=== PATIENT | female | born 1935 | race Caucasian/White ===

== ENCOUNTER → 2017-01-23 | Outpatient (CLI) | payer OTHER ==
--- NOTE | 2017-01-23 14:45 | ECHOCARDIOGRAM REPORT ---
*NOTICE TO RECEIVING [employer] This information is strictly Confidential and protected under [place] law. [place] law prohibits you from making any further disclosure of this information unless further disclosure is expressly permitted by the written consent of the person to whom it pertains or is authorized by law. A general authorization for the release of medical or other information is not sufficient for this purpose. Hospital accepts no responsibility if the information is made available to any other person, INCLUDING THE PATIENT. Interpretation Summary * Name: SHANNEN VALLES Study Date: 01/23/2017 01:05 PM BP: 146/79 mmHg * Patient Location: [facility] HR: 72 * : 1935 (M/d/yyyy) Gender: Female Height: 68 in * Age: 81 yrs Ethnicity: [place] Weight: 260 lb * Ordering Physician: ANDRIA REYES * Performed By: Cristal Serrato * * Reason For Study: AFIB * BSA: 2.3 m2 * -- Conclusions -- * Left ventricular systolic function is normal. * No regional wall motion abnormalities noted. * Ejection Fraction = 55-60%. * There is borderline concentric left ventricular hypertrophy. * There is mild mitral regurgitation. * There is mild tricuspid regurgitation. * The left atrium is severely dilated. * Atrial fibrillation throughout the study. Procedure Details * A complete two-dimensional transthoracic echocardiogram was performed (2D, M-mode, Doppler and color flow Doppler). * The study was technically difficult. * There were technical limitations due to patient'sbody habitus Left Ventricle * The left ventricle is normal in size. * There is borderline concentric left ventricular hypertrophy. * Ejection Fraction = 55-60%. * Left ventricular systolic function is normal. * No regional wall motion abnormalities noted. Right Ventricle * The right ventricle is grossly normal size. * The right ventricular systolic function is normal as assessed by tricuspid annular plane systolic excursion (TAPSE) (normal >1.5 cm). Atria * The left atrium is severely dilated. * The right atrium is moderately dilated. * No ASD detected; PFO is not assessed. Mitral Valve * The mitral valve is grossly normal. * There is no mitral valve stenosis. * There is mild mitral regurgitation. Tricuspid Valve * The tricuspid valve is not well visualized, but is grossly normal. * There is no tricuspid stenosis. * There is mild tricuspid regurgitation. Aortic Valve * The aortic valve is trileaflet. * The aortic valve opens well. * Aortic valve sclerosis mild, without significant aortic valvular stenosis. * There is no significant aortic regurgitation. Pulmonic Valve * The pulmonic valve is not well visualized. Great Vessels * The aortic root is normal size. * The pulmonary is not well visualized. Pericardium/Pleural * There is no pericardial effusion. Great Vessels * Normal inferior vena cava size and collapsability with sniff indicates a normal right atrial pressure of 3 mmHg MMode 2D Measurements and Calculations IVSd 1.2 cm IVSs 2.3 cm LVIDd 4.9 cm LVIDs 2.8 cm LVPWd 1.6 cm LVPWs 1.6 cm IVS/LVPW 0.77 FS 42.4 % EDV(Teich) 114.5 ml ESV(Teich) 30.6 ml EF(Teich) 73.2 % EDV(cubed) 119.9 ml ESV(cubed) 22.9 ml EF(cubed) 80.9 % % IVS thick 92.8 % % LVPW thick 4.6 % LV mass(C)d 281.4 grams LV mass(C)dI 123.1 grams/m\S\2 LV mass(C)s 244.1 grams LV mass(C)sI 106.8 grams/m\S\2 CO(Teich) 6.0 l/min CI(Teich) 2.6 l/min/m\S\2 SV(Teich) 83.8 ml SI(Teich) 36.7 ml/m\S\2 CO(cubed) 7.0 l/min CI(cubed) 3.1 l/min/m\S\2 SV(cubed) 97.0 ml SI(cubed) 42.4 ml/m\S\2 ACS 1.1 cm LA dimension 3.9 cm LVOT diam 1.8 cm LVOT area 2.5 cm\S\2 LVAd ap4 25.0 cm\S\2 LVLd ap4 6.7 cm EDV(MOD-sp4) 77.9 ml LVAs ap4 14.0 cm\S\2 LVLs ap4 5.5 cm ESV(MOD-sp4) 31.5 ml EF(MOD-sp4) 59.6 % LVAd ap2 25.4 cm\S\2 LVLd ap2 7.1 cm EDV(MOD-sp2) 77.5 ml LVAs ap2 14.0 cm\S\2 LVLs ap2 5.3 cm ESV(MOD-sp2) 32.3 ml EF(MOD-sp2) 58.3 % CO(MOD-sp4) 3.3 l/min CI(MOD-sp4) 1.5 l/min/m\S\2 SV(MOD-sp4) 46.4 ml SI(MOD-sp4) 20.3 ml/m\S\2 CO(MOD-sp2) 3.3 l/min CI(MOD-sp2) 1.4 l/min/m\S\2 SV(MOD-sp2) 45.2 ml SI(MOD-sp2) 19.8 ml/m\S\2 Doppler Measurements and Calculations MV E max antony 121.7 cm/sec MV dec time 0.20 sec Ao V2 max 147.7 cm/sec Ao max PG 8.7 mmHg Ao max PG (full) -0.50 mmHg NORMA(V,A) 2.6 cm\S\2 NORMA(V,D) 2.6 cm\S\2 LV V1 max PG 9.2 mmHg LV V1 mean PG 3.3 mmHg LV V1 max 151.8 cm/sec LV V1 mean 80.2 cm/sec LV V1 VTI 29.9 cm MR max antony 292.1 cm/sec MR max PG 34.1 mmHg SV(LVOT) 75.2 ml SI(LVOT) 32.9 ml/m\S\2 PA V2 max 62.6 cm/sec PA max PG 1.6 mmHg TR max antony 230.1 cm/sec
== END | disposition home or self-care (01) ==
LOC: C.CPL 12:21
DX: I48.91 Unspecified atrial fibrillation (principal); I10 Essential (primary) hypertension; I51.7 Cardiomegaly; I08.1 Rheumatic disorders of both mitral and tricuspid valves

== ENCOUNTER → 2017-07-10 | Outpatient (CLI) | payer OTHER ==
[2017-07-10 15:52] LABS: URINE APPEARANCE TURBID (CLEAR); URINE BILIRUBIN NEG (NEG); URINE COLOR DK YELLOW; URINE NITRITE NEG (NEG); URINE SPECIFIC GRAVITY 1.017 (1.000-1.030); UROBILINOGEN NEG (NEG)
[2017-07-10 16:00] LABS: MANUAL MICROSCOPIC REQUIRED? NO; REVIEW REQ? YES
== END | disposition home or self-care (01) ==
LOC: C.LAB1850 13:52
DX: N39.0 Urinary tract infection, site not specified (principal)

== ENCOUNTER → 2017-08-16 | Outpatient (CLI) | payer OTHER ==
[2017-08-16 10:01] LABS: URINE APPEARANCE CLOUDY (CLEAR); URINE COLOR ORANGE; URINE EPITHELIAL CELL AUTO >30 /lpf (0-5); URINE NITRITE NEG (NEG); URINE PH 5.5 (4.5-7.5); URINE SPECIFIC GRAVITY 1.022 (1.000-1.030); UROBILINOGEN NEG (NEG); ZZUR CULT IF INDIC CLEAN CATCH YES
[2017-08-16 10:10] LABS: MANUAL MICROSCOPIC REQUIRED? NO; REVIEW REQ? NO; URINE BILIRUBIN NEG (NEG)
--- NOTE | 2017-08-20 14:25 | CODING QUERY NO DIAGNOSIS ---
: 1935 TREATMENT RENDERED WITHOUT A DIAGNOSIS To promote full compliance with coding requirements relating to patient care, physician participation is requested in all cases of manager income tax uncertainty. Please assist us with providing a diagnosis/symptom for the test(s) below: A diagnosis/symptom was not documented on your Order. A valid diagnosis/symptom is required to bill all insurances. Please remember that we are unable to code a diagnosis of rule out, probable, possible, questionable, or suspected. Tests that require a diagnosis: DOS: 08/16/2017 * URINE CULTURE CLEAN CATCH DIAGNOSIS: * UA CLEAN CATCH CULTURE DIAGNOSIS: Provider Signature: Date: Thank you Eliza Ramos [facility] Information Management Once completed, please kindly fax back to [phone] For questions please call [phone]
== END | disposition home or self-care (01) ==
LOC: C.LAB1850 09:11
DX: N39.0 Urinary tract infection, site not specified (principal)

== ENCOUNTER → 2017-08-17 | Outpatient (CLI) | payer OTHER ==
--- NOTE | 2017-08-17 14:56 | DIAGNOSTIC IMAGING REPORT ---
RENAL ULTRASOUND HISTORY: HEMATURIA UNSPECIFIED COMPARISON: None. FINDINGS: Right kidney: 12.1 cm. No hydronephrosis. Normal corticomedullary differentiation and mild cortical thinning. Left kidney: 11.8 cm. No hydronephrosis. Normal corticomedullary differentiation and mild cortical thinning. A 2.3 x 1.9 cm upper pole cyst. Bladder: No bladder wall thickening. The bilateral ureteral jets were identified. IMPRESSION: 1. No hydronephrosis. 2. Mild bilateral cortical renal thinning which is likely age-related. 3. A 2.3 cm left renal cyst. Electronically signed by: Dylan Padron M.D. 08/17/2017 2:55 PM Dictated Date/Time: 08/17/2017 2:53 PM
== END | disposition home or self-care (01) ==
LOC: C.ULTR 13:52
PROVIDERS: ATTEND Physician Assistant
DX: R31.9 Hematuria, unspecified (principal); N28.1 Cyst of kidney, acquired

== ENCOUNTER → 2017-09-06 | Outpatient (CLI) | payer OTHER ==
--- NOTE | 2017-09-06 10:45 | DIAGNOSTIC IMAGING REPORT ---
ABD/PELVIS NO IV OR ORAL CONT HISTORY: 82 years-old Female HEMATURIA acute hematuria. Initial exam COMPARISON: Renal ultrasound 08/17/2017 TECHNIQUE: Multiple axial CT images of the abdomen and pelvis were obtained without contrast. A dose lowering technique was used consistent with the principals of MIKE. FINDINGS: Study is moderately limited secondary to motion artifact. There is mild dependent bibasilar atelectasis. Trace left pleural effusion. No pneumoperitoneum identified. Imaged inferior cardiac chambers are moderately enlarged. Coronary arterial calcifications are noted. No large pericardial effusion. Evaluation of the solid abdominal organs is limited without the use of IV contrast. Within the limitations of the study the liver, spleen, and right adrenal gland are unremarkable. There is a low attenuating 1.3 x 1.1 cm left adrenal gland lesion compatible with adenoma. Large gallstones are seen within the gallbladder lumen without definite CT evidence of acute cholecystitis, intrahepatic or extra hepatic biliary ductal dilation. 2.3 cm cyst is seen involving the superior pole left kidney, unchanged from comparison. There is no renal calculi or hydronephrosis identified. There is suggested small subcentimeter renal sinus cysts involving the inferior pole right kidney. Urinary bladder is partially collapsed with wall thickening. Focus of nondependent air is seen within the urine bladder lumen. Prior hysterectomy. No adnexal mass identified. There are phleboliths of the pelvis. Moderate to extensive atherosclerotic plaquing of the abdominal aorta. No bulky retroperitoneal adenopathy. Suspected small sliding-type hiatal hernia. No bowel obstruction or focal bowel wall thickening. Stool ball in the rectal vault. Colonic diverticulosis without diverticulitis. The appendix appears normal. Small fat filled periumbilical hernia, diastases 1.0 cm. The bones are moderately demineralized. Multilevel severe discogenic degenerative changes and facet arthropathy of the lower lumbar spine. IMPRESSION: 1. Moderately limited study secondary to patient motion. 2. Wall thickening of a partially collapsed urinary bladder is noted with air in the nondependent lumen. Correlate with urinalysis to exclude cystitis. No renal calculi or hydronephrosis. 3. Cholelithiasis without definite CT evidence of acute cholecystitis. 4. Colonic diverticulosis without evidence of acute diverticulitis. 5. Additional incidental findings as above. The above report was generated using voice recognition software. It may contain grammatical, syntax or spelling errors. Electronically signed by: Paulo Harmon M.D. 09/06/2017 10:44 AM Dictated Date/Time: 09/06/2017 10:37 AM
== END | disposition home or self-care (01) ==
LOC: C.CTS 09:40
PROVIDERS: ATTEND Physician Assistant
DX: R31.0 Gross hematuria (principal); R93.41 Abnormal radiologic findings on diagnostic imaging of renal pelvis, ureter, or bladder; K80.20 Calculus of gallbladder without cholecystitis without obstruction; K57.30 Diverticulosis of large intestine without perforation or abscess without bleeding

== ENCOUNTER → 2017-09-06 | Outpatient (CLI) | payer OTHER | END | disposition home or self-care (01) | LOC: C.PATHSPEC 17:02 | PROVIDERS: ATTEND Urology | DX: R31.0 Gross hematuria (principal) ==

== ENCOUNTER → 2017-09-14 | Outpatient (CLI) | payer OTHER | END | disposition home or self-care (01) | LOC: C.PATHSPEC 14:47 | PROVIDERS: ATTEND Urology | DX: R31.0 Gross hematuria (principal); N39.0 Urinary tract infection, site not specified ==

== ENCOUNTER → 2017-10-30 | Outpatient (CLI) | payer OTHER | END | disposition home or self-care (01) | LOC: C.PATHSPEC 17:50 | PROVIDERS: ATTEND Urology | DX: R31.0 Gross hematuria (principal) ==

== ENCOUNTER → 2017-10-30 | Outpatient (CLI) | payer OTHER ==
--- NOTE | 2017-10-30 10:48 | DIAGNOSTIC IMAGING REPORT ---
CT ABD/PELVIS IV AND ORAL CONT CLINICAL HISTORY: R31.0 Gross [id number] Renal cyst, acquired COMPARISON STUDY: 09/06/2017 TECHNIQUE: Following the IV administration of 93 mL of Optiray-320, CT scan of the abdomen and pelvis was performed from the lung bases to the proximal femurs. Images are reviewed in the axial, sagittal, and coronal planes. IV contrast was administered without complication. A dose lowering technique was utilized adhering to the principles of ALARA. CT DOSE: 1636.11 mGy.cm FINDINGS: Lower chest: The heart is enlarged. There is mild dependent atelectatic change. There is respiratory motion artifact. Liver: The contrast-enhanced liver is normal in size, contour, and attenuation. There is no intrahepatic biliary ductal dilatation. The hepatic veins and portal veins are patent. Gallbladder: Cholelithiasis with gallbladder wall thickening. Spleen: Normal in size and attenuation. Pancreas: Unremarkable. Adrenal glands: There is a stable 13 mm left adrenal adenoma Kidneys: There is a 2.5 cm left renal cyst. Right renal parapelvic cysts are suspected. There is no significant hydronephrosis. No solid renal masses are visualized. Bowel: There are no transition zones indicate bowel obstruction. There are scattered colonic diverticula present. There are no acute peridiverticular inflammatory changes. There is no evidence of acute appendicitis. Peritoneum: There is no intraperitoneal free air or abdominal ascites. There is a small fat-containing umbilical hernia. Vasculature: The abdominal aorta is normal in course and caliber. Adenopathy: None. Pelvic viscera: The uterus appears surgically absent Skeletal structures: No destructive osseous lesions are seen. IMPRESSION: 1. Stable 13 mm left adrenal adenoma 2. 2.5 cm left renal cyst. No solid renal masses identified 3. No evidence of bowel obstruction. No evidence of free air 4. Cholelithiasis. Gallbladder wall thickening. Electronically signed by: Jose Olivas M.D. 10/30/2017 10:46 AM Dictated Date/Time: 10/30/2017 10:42 AM
== END | disposition home or self-care (01) ==
LOC: C.CTS 08:19
PROVIDERS: ATTEND Urology
DX: N28.1 Cyst of kidney, acquired (principal); R31.0 Gross hematuria

== ENCOUNTER → 2017-10-30 | Outpatient (CLI) | payer OTHER | END | disposition home or self-care (01) | LOC: C.LABSPEC 17:16 | PROVIDERS: ATTEND Urology | DX: R31.0 Gross hematuria (principal); N39.0 Urinary tract infection, site not specified ==

== ENCOUNTER → 2018-03-20 | Day surgery (SDC) | payer OTHER ==
[2017-12-14 11:50] VITALS: BMI 38.0
[2018-03-13 11:40] VITALS: Ht 172.7 cm; Wt 118.2 kg
[~2018-03-20] VITALS: Ht 172.7 cm; Wt 118.2 kg
[~2018-03-20] MED LIST: 500ML BSS 0.3ML EPI 1:1000PF IRRIG ONE; ACETAMINOPHEN 325 MG TAB PO PRN; ALPR-411 PO; AMVISC PLUS 0.8ML SYRINGE INT OCU ONE; ASPI-560 PO; ATOR10TA82 PO; ATROPINE SULFATE 0.1 MG/ML 5ML SYR IV PRN; AcetaZOLAMIDE 250 MG TAB PO SCH; BETAXOLOL HCL 0.25% OP SUSP PER DROP CHARGE OPR SCH; BRIMONIDINE TART 0.2% OP SOLN PER DROP CHARGE ONE; BSS FLUSH ONE; CYCLOPENTOLATE HCL 1% OP SOLN PER DROP CHARGE OPR SCH; ENDOCOAT 0.85ML SYRINGE INT OCU ONE; EpHEDrine SULFATE INJ 50 MG/ML AMP IV PRN; EpINEphrine INJ 1MG/ML AMP 1 MG/ML AMP ONE; FURO20TA PO; LACTATED RINGER'S 1000ML 500 ML IV SCH; LEVO100T7 PO; LEVO75TA5 PO; LIDOCAINE 4% OP SOLN DROP CHARGE ONE; LIDOCAINE 4% OP SOLN DROP CHARGE OPR SCH; LIDOCAINE HCL 1% MPF 2 ML VIAL ONE; LORC1TAB PO; MIDAZOLAM HCL 1 MG/ML 2ML VIAL ONE; MISSING PHYSICIAN SIGNATURE ON ORDER SCH; MIX: 4ML BSS 1ML EPI 1:1000 PF INSTIL ONE; MOXIFLOXACIN OPH SOLN PER DROP CHARGE ONE; MOXIFLOXACIN OPH SOLN PER DROP CHARGE OPR SCH; MULT-614 PO; NITR1CAP33 PO; OMEG10007 PO; PHENYLEPHRINE HCL 2.5% OP SOLN PER DROP CHARGE OPR SCH; POVIDONE-IODINE OP SOLN 30 ML BTL ONE; PROPARACAINE 0.5% OP SOLN PER DROP CHARGE OPR SCH; TOBRAMYCIN/DEXAMETHASONE OPH OINT PER APPLN CHARGE ONE; TROPICAMIDE 1% OP SOLN PER DROP CHARGE OPR SCH; WARF4TAB PO
--- NOTE | 2018-03-20 06:29 | History & Physical Bridge - SC ---
H&P Re-Evaluation Bridge Note: I have examined the patient, reviewed the History & Physical and in the interval since the performance of the History & Physical I have noted the following changes of clinical significance: No changes noted
[2018-03-20] MEDS: PHENYLEPHRINE HCL 2.5% OP SOLN PER DROP CHARGE OPR SCH ×2 (06:53→06:57)
[2018-03-20] MEDS: TROPICAMIDE 1% OP SOLN PER DROP CHARGE OPR SCH ×2 (06:54→06:58)
[2018-03-20] MEDS: CYCLOPENTOLATE HCL 1% OP SOLN PER DROP CHARGE OPR SCH ×2 (06:55→06:59)
[2018-03-20] MEDS: MOXIFLOXACIN OPH SOLN PER DROP CHARGE OPR SCH ×2 (06:55→07:05)
--- NOTE | 2018-03-20 07:36 | [facility] Operative Report ---
Operative Report Date of Service March 20, 2018. Operative Report 1. PREOPERATIVE DIAGNOSIS: Senile nuclear cataract, right eye. 2. POSTOPERATIVE DIAGNOSIS: Senile nuclear cataract, right eye. 3. PROCEDURE: Phacoemulsification of right cataract with posterior chamber lens implant, type [employer], model MX60E, power +21.5 diopters. ANESTHESIA: Local standby. SURGEON: Dr. Mendes. COMPLICATIONS: None. OPERATING TIME: 10 minutes. 4. OPERATION AND FINDINGS: DESCRIPTION OF PROCEDURE: The right pupil was dilated. The anesthetic was administered using a topical technique. The right eye was prepped and draped. A speculum was placed. A clear corneal incision was formed. The chamber was filled with Amvisc Plus and Endocoat. Epinephrine solution was used. A paracentesis was placed. A capsulorrhexis was performed. The nucleus was hydrodissected. A dense lens was removed with phacoemulsification. Time was 5.74 seconds. The aspiration unit was used to remove the cortex. The capsule was filled with Amvisc Plus. The lens implant was folded and placed into the capsule. The incision was hydrated. The Amvisc was aspirated. The wound was secure. The chamber was deep. The pupil was round. Brimonidine, TobraDex ointment and Vigamox solution were placed. The speculum was removed. The patient was returned to the Recovery Room in stable condition. I attest to the content of the Intraoperative Record and any orders documented therein. Any exceptions are noted below. The scribe's documentation has been prepared in my presence, under my direction and personally reviewed by me in its entirety. I confirm that the note above accurately reflects all work, treatment, procedures, and medical decision making performed by me. I personally scribed for Luis Enrique Mendes M.D. ([email or web address]) on 03/20/18 at 07:36. Electronically submitted by Carol Weeks ([email or web address]).
--- NOTE | 2018-03-20 07:38 | Discharge Instructions-SurgCtr ---
Discharge Instructions Date of Service March 20, 2018. Visit Reason for Visit: Cataract Right Eye Discharge Discharge Diagnosis / Problem: lens implant right eye Discharge Goals Goal(s): Improve function Activity Recommendations Activity Limitations: resume your previous activity Lifting Limitations: no more than 10 pounds Exercise/Sports Limitations: gradually increase as tolerated May Resume Sexual Activity: when tolerated Shower/Bathe: tomorrow Driving or Machine Use: resume 1 day after discharge Anesthesia . Post Anesthesia Instructions: If you have had General Anesthesia or IV Sedation: * Do not drive today. * Resume driving when surgeon permits. * Do not make important decisions or sign legal documents today. * Call surgeon for: 1. Temperature elevations greater than 101 degrees F. 2. Uncontrollable pain. 3. Excessive bleeding. 4. Persistent nausea and vomiting. 5. Medication intolerance (nausea, vomiting or rash). * For nausea and vomiting use only clear liquids such as: tea, soda, bouillon until nausea subsides, then gradually increase diet as tolerated. * If you have any concerns or questions, call your surgeon's office. If physician is unavailable and it is an emergency, call 911 or go to the nearest emergency room. . Instructions / Follow-Up Instructions / Follow-Up ACTIVITY RECOMMENDATIONS: * Light activities. * Mild irritation and blurred vision are common for the first few days. * You may walk outside, read, watch television. * Redness around the white part of the eye is common. MEDICATIONS: Resume previous medications unless instructed otherwise by your surgeon. * Take white Diamox (Acetazolamide) tablet at 1 pm today. Start all eye drops at 1 pm today: * Eye drops (today and tomorrow): Prednisone - one drop in operative eye every 3 hours while awake Ofloxacin - one drop in operative eye every 3 hours while awake SPECIAL CARE INSTRUCTIONS: * Tape plastic shield over eye to sleep at night. Call your doctor at with any concerns or problems. FOLLOW UP VISIT: Follow-up with Dr Mendes at [facility] as scheduled. Diet Recommendations Home Diet: no limitations Procedures Procedures Performed: Right Cataract Phacoemulsification With Intraocular Lens Implant Pending Studies Studies pending at discharge: no Medical Emergencies . Who to Call and When: Medical Emergencies: If at any time you feel your situation is an emergency, please call 911 immediately. . Non-Emergent Contact Non-Emergency issues call your: [employer] Pl[employer]aker Call Non-Emergent contact if: your pain is not controlled [phone] . . "Provider Documentation" section prepared by Luis Enrique Mendes. .
--- NOTE | 2018-03-20 07:44 | Anesthesia Progress Nt - [facility] ---
Anesthesia Post Op Note Date & Time March 20, 2018 at 07:44 Vital Signs Pain Intensity: 0 Vital Signs Past 12 Hours Date Time Temp Pulse Resp B/P (MAP) Pulse Ox O2 Delivery O2 Flow Rate FiO2 03/20/18 06:35 36.7 70 20 119/77 (91) 94 Room Air Notes Mental Status: alert / awake / arousable, participated in evaluation Pt Amnestic to Procedure: Yes Nausea / Vomiting: adequately controlled Pain: adequately controlled Airway Patency, RR, SpO2: stable & adequate BP & HR: stable & adequate Hydration State: stable & adequate Anesthetic Complications: no major complications apparent
[2018-03-20 08:03] VITALS: BP 156/83; PULSE 51; O2SAT 95
== END | disposition home or self-care (01) ==
LOC: X.SURG 06:27
PROVIDERS: ATTEND Specialist
DX: H25.11 Age-related nuclear cataract, right eye (principal); I48.91 Unspecified atrial fibrillation; J44.9 Chronic obstructive pulmonary disease, unspecified; F32.9 Major depressive disorder, single episode, unspecified; E66.01 Morbid (severe) obesity due to excess calories; Z68.39 Body mass index [BMI] 39.0-39.9, adult; Z79.01 Long term (current) use of anticoagulants

== ENCOUNTER 2022-06-21 21:54 | Observation (INO) ==
--- NOTE | 2022-06-21 22:43 | Emergency Department Note ---
History of Present Illness General Chief complaint: Chest Pain Stated complaint: chest pain Time Seen by Provider: 06/21/22 22:29 Source: patient and family (Son who is at the bedside) Mode of arrival: ambulatory Limitations: no limitations History of Present Illness Maximum Pain Intensity: 6 This patient is a 86-year-old female comes in after having chest pain. She said it started around 6:00 after she got other shower it was right-sided but it spread up into her neck she said she had no other symptoms with that she does have a history of chronic A. fib and had no syncope or rapid heart rates. she had no numbness or tingling she said it hurt to breathe but also hurt when she would breathe as well. She has had a cough for few days but but is been breathing normal her grandson came to see her and she slept from 7-9 but when she woke up she still had the pain. She did call ambulance and they gave her as pirin as well as nitroglycerin x1 she says she is never had nitro before but it made the pain go away. She is asymptomatic at present. Home Medications Medication Instructions Recorded Confirmed Type multivit with 1 tab PO QAM 12/29/20 06/22/22 History pamiquje-rkuf-LN-lutein 8 mg iron-400 mcg-300 mcg tablet (Centrum Silver Women) omega-3 fatty acids 1,000 mg 1,000 mg PO QAM 12/29/20 06/22/22 History capsule (Fish Oil Concentrate) polyethylene glycol 3350 17 17 g PO QAM 12/29/20 06/22/22 History gram/dose oral powder alprazolam 0.5 mg tablet 0.5 mg PO TID #90 tabs 03/10/22 06/22/22 Rx acetaminophen 500 mg tablet 500 mg PO Q6H PRN Pain 05/17/22 06/22/22 History atorvastatin 10 mg tablet 10 mg PO QAM 05/17/22 06/22/22 History cholecalciferol (vitamin D3) 50 50 mcg PO QAM 05/17/22 06/22/22 History mcg (2,000 unit) capsule (Vitamin D3) clobetasol 0.05 % topical cream 1 applic topical BID PRN Rash 05/17/22 06/22/22 History furosemide 20 mg tablet 20 mg PO QAM 05/17/22 06/22/22 History levothyroxine 150 mcg tablet 150 mcg PO QAM 05/17/22 06/22/22 History (Synthroid) rivaroxaban 20 mg tablet (Xarelto) 20 mg PO HS 05/17/22 06/22/22 History cephalexin 250 mg capsule 250 mg PO BID 7 days #14 caps 06/20/22 06/22/22 Rx Allergies Allergy/AdvReac Type Severity Reaction Status Date / Time No Known Allergies Allergy Verified 06/22/22 00:03 Past Med/Surg History Medical History Anxiety Atrial fibrillation F/U DR JM CARD Dyspnea on effort Hypothyroidism Renal cyst, acquired UTI (urinary tract infection), uncomplicated HX Surgical History H/O: hysterectomy Family History Father Myocardial infarction Mother Diabetes CHF (congestive heart failure) Aunt Stroke Sister Diabetes Denies family history of Ovarian cancer Prostate cancer Breast cancer Lung cancer Colorectal cancer Social History Smoking Status: Never smoker Tobacco Type: Cigarettes Age Started Using Tobacco: 15; Age Quit Using Tobacco: 54; packs per day: 2; Years Smoked: 40; Number of Years Since Quit: 25; Second Hand Exposure: Yes (PARENTS SMOKED); Hx Alcohol Use: Yes Alcohol type: wine and hard liquor Alcohol Intake Frequency: 2-3 x/Week Hx Substance Use: No Preferred Language: [place] Communication Ability: Effective Visual Impairment: Limited Hearing Ability: Hard of Hearing Lumber Tailer Required: No Beliefs That Will Affect Care: Gnosticist Gnosticist Beliefs: BAHAI marital status: / Current Living Situation: Alone and Other Current Living Situation Comment: [facility] current occupational status: retired How many Children do You have: 4 Feels Safe at Home: Yes Childhood Exposure to Second-Hand Smoke: No Diet Comment: calorie counts caffeine: Yes Dental Care, Regularly: No Physical Activity Frequency: Daily Physical Activity Frequency Comment: upper body care and chair excersie Seatbelt Use: always Sunscreen Use: No Assistive Devices: Denture - Upper, Denture - Lower, Glasses and Walker Review of Systems A total of 10 systems reviewed and were otherwise negative Physical Exam Vital Signs Vital Signs - 24 hr 06/21/22 22:23 06/21/22 22:23 06/21/22 22:38 Temperature 37 C Temperature Source Oral Pulse Rate 70 Pulse Rate from SpO2 Sensor Respiratory Rate 20 Respiratory Effort / Characteristics Non-Labored Non-Labored Respiratory Depth Normal Normal Blood Pressure 168/67 H Blood Pressure Mean 100 Pulse Oximetry 92 92 Oxygen Delivery Method Room Air Room Air Sepsis Recent Fever Within 48 Hours No Sepsis New/Unexplained Change in Mental Status No Sepsis Action Taken by Nursing No Action Required 06/21/22 22:21 06/21/22 22:09 06/21/22 22:30 Temperature Temperature Source Pulse Rate 83 79 Pulse Rate from SpO2 Sensor 86 75 Respiratory Rate 22 19 Respiratory Effort / Characteristics Respiratory Depth Blood Pressure Blood Pressure Mean Pulse Oximetry 93 93 Oxygen Delivery Method Room Air Sepsis Recent Fever Within 48 Hours Sepsis New/Unexplained Change in Mental Status Sepsis Action Taken by Nursing 06/21/22 23:00 06/21/22 23:30 06/22/22 00:00 Temperature Temperature Source Pulse Rate 80 78 86 Pulse Rate from SpO2 Sensor 84 Respiratory Rate 10 L 26 H 17 Respiratory Effort / Characteristics Respiratory Depth Blood Pressure Blood Pressure Mean Pulse Oximetry 93 Oxygen Delivery Method Sepsis Recent Fever Within 48 Hours Sepsis New/Unexplained Change in Mental Status Sepsis Action Taken by Nursing 06/22/22 00:30 06/22/22 01:00 06/22/22 01:27 Temperature Temperature Source Pulse Rate 114 H 90 Pulse Rate from SpO2 Sensor Respiratory Rate 15 22 Respiratory Effort / Characteristics Respiratory Depth Blood Pressure 157/89 H Blood Pressure Mean 111 Pulse Oximetry Oxygen Delivery Method Sepsis Recent Fever Within 48 Hours Sepsis New/Unexplained Change in Mental Status Sepsis Action Taken by Nursing 06/22/22 01:27 06/22/22 01:30 06/22/22 02:00 Temperature Temperature Source Pulse Rate 88 81 86 Pulse Rate from SpO2 Sensor Respiratory Rate 18 18 21 Respiratory Effort / Characteristics Respiratory Depth Blood Pressure Blood Pressure Mean Pulse Oximetry Oxygen Delivery Method Sepsis Recent Fever Within 48 Hours Sepsis New/Unexplained Change in Mental Status Sepsis Action Taken by Nursing General: Well developed well nourished older female who appears in no acute distress, breathing comfortably on room air. Normal speech HEENT: Normal cephalic atraumatic. Pupils are equal round and reactive to ligh t. Extraocular movements are intact. Oropharynx is pink with moist mucous membranes. No swelling of the mouth lips or tongue. Sclera anicteric. Neck: Supple with a midline trachea. No meningeal signs or stiffness, no JVD or bruits. No Stridor. Chest: Clear to auscultation bilaterally. No wheezes or rhonchi. No increased work of breathing. Heart: Regular rate and rhythm without murmurs or gallops. Abdomen: Soft nontender, nondistended without rebound guarding or rigidity. Extremities: No cyanosis clubbing or edema. No calf tenderness or assymetry Spine/Back. Non tender to palpation. No CVA tenderness Skin: Good turgor without rashes. Neurologic exam: Cranial nerves two through 12 are intact. Motor and sensation are intact and symmetrical throughout. Procedures Free Text Procedures ED observation Start Time: 223706/21/22 Reason: Patient with PMHx of a. fib underwent ED Observation for chest pain . Fam Hx: CAD SocHx: See Below Summary: This patient had an episode of chest pain. Placed on a property assessment monitor and she had 2 EKGs done while she was here which showed A. fib there is no ST segment elevation there is possibly some subtle depressions. Her initial troponin was mildly elevated however the second 1 appears to be trending downward. Because of her age and her cardiac risk factors I do think she ultimately needs to be admitted/observed. Disposition: Admission 06/22/22. 219 Total Time:3 hours and 37 min Medical Decision Making Differential Diagnosis Acute coronary syndrome, arrhythmia, A. fib, trauma, pneumothorax, PE, CHF, COVID Medical Records Attestation: I reviewed the patient's medical records. Home Medications Current Medication List: was personally reviewed by me Laboratory Data Attestation: I reviewed the patient's lab results. Result diagrams: 06/21/22 23:21 06/21/22 23:21 Lab Results 06/21/22 06/21/22 06/21/22 Range/Units 23:21 23:21 23:21 WBC 9.18 (4.8-10.8) K/ul RBC 4.05 (3.93-5.22) M/uL Hgb 13.0 (12.0-16.0) g/dl Hct 41.1 (34.1-44.9) % MCV 101.5 H (80.0-100.0) fL MCH 32.1 (25.0-34.0) pg MCHC 31.6 L (32.0-36.0) g/dL RDW Std Deviation 48.2 H (36.4-46.3) fL RDW Coeff of Chris 12.8 (11.5-14.5) % Plt Count 170 (130-400) K/uL MPV 9.5 (9.4-12.3) fL Immature Gran % (Auto) 0.3 % Neut % (Auto) 72.3 % Lymph % (Auto) 14.1 % [place] % (Auto) 12.0 % Eos % (Auto) 1.0 % Baso % (Auto) 0.3 % Neut # (Auto) 6.64 H (1.4-6.5) K/uL Lymph # (Auto) 1.29 (1.2-3.4) K/uL [place] # (Auto) 1.10 H (0.24-0.82) K/uL Eos # (Auto) 0.09 (0-0.50) K/uL Baso # (Auto) 0.03 (0-0.2) K/uL Immature Gran # (Auto) 0.03 H (0.00-0.02) K/uL PT 12.8 H (9.0-12.0) Seconds INR 1.2 H (0.9-1.1) APTT 31.9 H (21.0-31.0) Seconds PTT Ratio 1.2 Sodium 137 (136-145) mmol/L Potassium 3.9 (3.5-5.1) mmol/L Chloride 101 (98-107) mmol/L Carbon Dioxide 28 (21-32) mmol/L Anion Gap 8 (3-11) BUN 12 (6-23) mg/dl Creatinine 0.82 (0.6-1.2) mg/dl Est Cr Clr Drug Dosing 65.0 ml/min Est GFR ( Amer) 74.6 ml/min Est GFR (Non-Af Amer) 64.3 ml/min BUN/Creatinine Ratio 14.6 (10-20) Glucose 152 H (70-99(Fasting)) mg/dl Calcium 9.2 (8.5-10.1) mg/dl Total Bilirubin 0.6 (0.2-1.0) mg/dl AST 29 (13-39) U/L ALT 18 (7-52) U/L Alkaline Phosphatase 53 (34-104) U/L Troponin I High Sens 29.1 H (0-14) pg/ml Total Protein 7.9 (6.0-8.3) gm/dl Albumin 4.0 (3.4-5.0) gm/dl Globulin 3.9 (2.5-4.0) gm/dl Albumin/Globulin Ratio 1.0 (0.9-2) Lipase 11 (11-82) U/L SARS-CoV-2, RNA, NAAT (NEGATIVE) 06/22/22 06/22/22 Range/Units 00:42 01:20 WBC (4.8-10.8) K/ul RBC (3.93-5.22) M/uL Hgb (12.0-16.0) g/dl Hct (34.1-44.9) % MCV (80.0-100.0) fL MCH (25.0-34.0) pg MCHC (32.0-36.0) g/dL RDW Std Deviation (36.4-46.3) fL RDW Coeff of Chris (11.5-14.5) % Plt Count (130-400) K/uL MPV (9.4-12.3) fL Immature Gran % (Auto) % Neut % (Auto) % Lymph % (Auto) % [place] % (Auto) % Eos % (Auto) % Baso % (Auto) % Neut # (Auto) (1.4-6.5) K/uL Lymph # (Auto) (1.2-3.4) K/uL [place] # (Auto) (0.24-0.82) K/uL Eos # (Auto) (0-0.50) K/uL Baso # (Auto) (0-0.2) K/uL Immature Gran # (Auto) (0.00-0.02) K/uL PT (9.0-12.0) Seconds INR (0.9-1.1) APTT (21.0-31.0) Seconds PTT Ratio Sodium (136-145) mmol/L Potassium (3.5-5.1) mmol/L Chloride (98-107) mmol/L Carbon Dioxide (21-32) mmol/L Anion Gap (3-11) BUN (6-23) mg/dl Creatinine (0.6-1.2) mg/dl Est Cr Clr Drug Dosing ml/min Est GFR ( Amer) ml/min Est GFR (Non-Af Amer) ml/min BUN/Creatinine Ratio (10-20) Glucose (70-99(Fasting)) mg/dl Calcium (8.5-10.1) mg/dl Total Bilirubin (0.2-1.0) mg/dl AST (13-39) U/L ALT (7-52) U/L Alkaline Phosphatase (34-104) U/L Troponin I High Sens 26.9 H (0-14) pg/ml Total Protein (6.0-8.3) gm/dl Albumin (3.4-5.0) gm/dl Globulin (2.5-4.0) gm/dl Albumin/Globulin Ratio (0.9-2) Lipase (11-82) U/L SARS-CoV-2, RNA, NAAT NEGATIVE (NEGATIVE) Imaging Data Attestation: I personally reviewed and interpreted this imaging study as follows: My Impression: Chest x-rayCardiomegaly but no acute infiltrate, failure, pneumothorax seen ECG Data Attestation: I personally reviewed and interpreted this ECG as follows: Indication: + chest pain Rate (beats per minute): 72 Rhythm: + atrial fibrillation ECG Intervals/blocks: + Normal QRS, + Normal QT and + Normal NE ECG [place]: + Normal ECG ST segments: + Nonspecific ST abnormalities ECG Findings: no PACs or no PVCs Comparison ECG Date: no prior available Additional Comments: EKG #2: Rate controlled A. fib at 88 no ischemic changes no change. EKG #1 MDM Narrative This patient comes in as described above. She had episode of chest pain she came in by ambulance she is feeling better now she was given nitroglycerin and aspirin on route and that seemed to help. She is on Xarelto. She did fall yesterday but it denied any chest pain or trauma at that time. I did order chest x-ray EKG multiple blood testing as well as IV access and she was placed o n a property assessment monitor. She was reassessed frequently. Chest x-ray does not show congestive heart failure pneumonia or pneumothorax. She has no white count or fever to suggest infection. She has no significant anemia. Her EKG shows no ischemic changes x2 and no change compared to either one. her initial troponin is mildly elevated 29 the second 1 is decreased at 26. This may be from her fall however given her symptoms I do think that she should be admitted/observed for further cardiac work-up and evaluation. I have consulted Dr. Greco and the [facility] hospitalist team to see her for these measures. Continuous cardiac monitoring: Orders placed in EMR for continuous cardiac mon itoring. Breen interpretation the patient was noted be in rate controlled A. fib with a rate of 70 Impression & Plan Chest pain, exterminator termite current use of anticoagulant, Fall, A-fib Discharge Plan Visit Data Chief Complaint: Chest Pain Stated Complaint: chest pain ED Provider: Juan Sarabia Discharge Problem: Chest pain, exterminator termite current use of anticoagulant, Fall, A-fib Forms Stand Alone Forms: My [facility] Prescriptions Prescriptions: No Action polyethylene glycol 3350 17 gram/dose powder 17 g PO QAM Centrum Silver Women 8 mg iron-400 mcg-300 mcg tablet 1 tab PO QAM omega-3 fatty acids [Fish Oil Concentrate] 1,000 mg capsule 1,000 mg PO QAM alprazolam 0.5 mg tablet 0.5 mg PO TID Qty: 90 5RF cholecalciferol (vitamin D3) [Vitamin D3] 50 mcg (2,000 unit) Capsule 50 mcg PO QAM atorvastatin 10 mg tablet 10 mg PO QAM clobetasol 0.05 % cream 1 applic topical BID PRN (Reason: Rash) levothyroxine [Synthroid] 150 mcg tablet 150 mcg PO QAM furosemide 20 mg tablet 20 mg PO QAM Xarelto 20 mg tablet 20 mg PO HS acetaminophen 500 mg Tablet 500 mg PO Q6H PRN (Reason: Pain) cephalexin 250 mg capsule 250 mg PO BID 7 Days Qty: 14 0RF Referrals Referrals: Jm Sung MD [Primary Care Provider] - : Chest pain Qualifiers: Chest pain type: precordial pain Qualified Code(s): R07.2 - Precordial pain Fall Qualifiers: Encounter type: subsequent encounter Qualified Code(s): W19.XXXD - Unspecified fall, subsequent encounter A-fib Qualifiers: Atrial fibrillation type: longstanding persistent Qualified Code(s): I48.11 - Longstanding persistent atrial fibrillation
[2022-06-21 23:31] LABS: Basophils # (auto) 0.03 K/uL (0-0.2); Basophils % (auto) 0.3 %; Eosinophils # (auto) 0.09 K/uL (0-0.50); Hematocrit (blood only) 41.1 % (34.1-44.9); Immature Granulocytes # (auto) 0.03 K/uL (0.00-0.02); Immature Granulocytes % (auto) 0.3 %; Lymphocytes # (auto) 1.29 K/uL (1.2-3.4); Lymphocytes % (auto) 14.1 %; Mean Corpuscular Hemoglobin 32.1 pg (25.0-34.0); Mean Corpuscular Hgb Conc 31.6 g/dL (32.0-36.0); Mean Corpuscular Volume 101.5 fL (80.0-100.0); Mean Platelet Volume 9.5 fL (9.4-12.3); Neutrophils # (auto) 6.64 K/uL (1.4-6.5); Neutrophils % (auto) 72.3 %; Platelet Count 170 K/uL (130-400); RDW Coefficient of Variation 12.8 % (11.5-14.5); RDW Standard Deviation 48.2 fL (36.4-46.3); Red Blood Count 4.05 M/uL (3.93-5.22); White Blood Count 9.18 K/ul (4.8-10.8)
[2022-06-21 23:51] LABS: BUN Creatinine Ratio 14.6 (10-20); Bilirubin,Total 0.6 mg/dl (0.2-1.0); Calcium 9.2 mg/dl (8.5-10.1); Est GFR (African American) 74.6 ml/min; Est GFR (Non-African American) 64.3 ml/min; Globulin 3.9 gm/dl (2.5-4.0); Potassium 3.9 mmol/L (3.5-5.1); Total Protein 7.9 gm/dl (6.0-8.3)
[2022-06-21 23:57] LABS: Troponin I High Sensitivity 29.1 pg/ml (0-14)
[2022-06-22 00:02] LABS: INR 1.2 (0.9-1.1); Partial Thromboplastin Ratio 1.2; Partial Thromboplastin Time 31.9 Seconds (21.0-31.0); Prothrombin Time 12.8 Seconds (9.0-12.0)
--- NOTE | 2022-06-22 02:10 | History & Physical Report ---
Date of Service June 22, 2022 Assessment & Plan (1) Bronchitis: Plan: Ceftriaxone 2 g IV daily Guaifenesin extended release 12 mg p.o. twice daily Tessalon Perles 100 mg p.o. 3 times daily as needed (2) NSTEMI (non-ST elevated myocardial infarction): Plan: Likely type II secondary to respiratory process The patient will be admitted to telemetry for serial cardiac enzymes, serial EKG's, cardiac rhythm monitoring and a 2-D echocardiogram with Dopplers. (3) A-fib: Plan: A. fib/long-term use of anticoagulation- Patient missed dose Xarelto this evening Start heparin drip low-dose per protocol (4) Current use of skilled nursing anticoagulation: Plan: See above (5) Anxiety: Plan: Continue alprazolam (6) Hyperlipidemia: Plan: Continue atorvastatin History of Present Illness Chief Complaint: The patient presents to the emergency department with complaint of some pain under her ribs, a cough with pleuritic chest pain that occurred after exposure to her sick young grandchildren. Primary Care Provider: Jm Sung MD The patient is an 86-year-old female with a past medical history including closed head injury, long-term anticoagulation with Xarelto, atrial fibrillation, recurrent UTI, gait disturbance, anxiety, hyperlipidemia, hyperglycemia, vitamin D deficiency and blood in stool. She presents with symptoms as noted above. Her cough in the emergency department sounds moist. Abnormal laboratories: Troponin 29.1, glucose 152, potassium 3.9. EKG shows atrial fibrillation with controlled rate, with minimal ST depressions in lateral chest leads Allergies Allergy/AdvReac Type Severity Reaction Status Date / Time No Known Allergies Allergy Verified 06/22/22 00:03 Home Medications Medication Instructions Recorded Confirmed Type multivit with 1 tab PO QAM 12/29/20 06/22/22 History thqdizln-pjwk-QY-lutein 8 mg iron-400 mcg-300 mcg tablet (Centrum Silver Women) omega-3 fatty acids 1,000 mg 1,000 mg PO QAM 12/29/20 06/22/22 History capsule (Fish Oil Concentrate) polyethylene glycol 3350 17 17 g PO QAM 12/29/20 06/22/22 History gram/dose oral powder alprazolam 0.5 mg tablet 0.5 mg PO TID #90 tabs 03/10/22 06/22/22 Rx acetaminophen 500 mg tablet 500 mg PO Q6H PRN Pain 05/17/22 06/22/22 History atorvastatin 10 mg tablet 10 mg PO QAM 05/17/22 06/22/22 History cholecalciferol (vitamin D3) 50 50 mcg PO QAM 05/17/22 06/22/22 History mcg (2,000 unit) capsule (Vitamin D3) clobetasol 0.05 % topical cream 1 applic topical BID PRN Rash 05/17/22 06/22/22 History furosemide 20 mg tablet 20 mg PO QAM 05/17/22 06/22/22 History levothyroxine 150 mcg tablet 150 mcg PO QAM 05/17/22 06/22/22 History (Synthroid) rivaroxaban 20 mg tablet (Xarelto) 20 mg PO HS 05/17/22 06/22/22 History cephalexin 250 mg capsule 250 mg PO BID 7 days #14 caps 06/20/22 06/22/22 Rx Past Med/Surg History Medical History (Updated 06/22/22 @ 03:40 by Jose Luis Samaniego MD) Anxiety Atrial fibrillation F/U DR JM CARD Dyspnea on effort Hypothyroidism Renal cyst, acquired UTI (urinary tract infection), uncomplicated HX Surgical History H/O: hysterectomy Family History Father Myocardial infarction Mother Diabetes CHF (congestive heart failure) Aunt Stroke Sister Diabetes Denies family history of Ovarian cancer Prostate cancer Breast cancer Lung cancer Colorectal cancer Social History Smoking Status: Never smoker Tobacco Type: Cigarettes Age Started Using Tobacco: 15; Age Quit Using Tobacco: 54; packs per day: 2; Years Smoked: 40; Number of Years Since Quit: 25; Second Hand Exposure: Yes (PARENTS SMOKED); Hx Alcohol Use: Yes Alcohol type: wine and hard liquor Alcohol Intake F requency: 2-3 x/Week Hx Substance Use: No Preferred Language: Uzbek Communication Ability: Effective Visual Impairment: Limited Hearing Ability: Hard of Hearing Proposal Writer Required: No Beliefs That Will Affect Care: Quaker Quaker Beliefs: ORTHODOX marital status: / Current Living Situation: Alone and Other Current Living Situation Comment: [facility] current occupational status: retired How many Children do You have: 4 Feels Safe at Home: Yes Childhood Exposure to Second-Hand Smoke: No Diet Comment: calorie counts caffeine: Yes Dental Care, Regularly: No Physical Activity Frequency: Daily Physical Activity Frequency Comment: upper body care and chair excersie Seatbelt Use: always Sunscreen Use: No Assistive Devices: Denture - Upper, Denture - Lower, Glasses and Walker Review of Systems Review of Systems: The patient denies sore throat, fevers, chills, sweats, weight change, fatigue, nausea, vomiting, diarrhea , constipation, abdominal pain, pelvic pain, blood in urine or stool, dysuria, urinary frequency or urgency, lightheadedness, dizziness, headache, memory loss, loss of consciousness, rash, abnormal bruising or bleeding, focal weakness, numbness or tingling in arms or legs, generalized arthralgias or myalgias, back or neck pain, or night sweats. The review of systems is otherwise negative other than for that already noted above, and at least 10 systems have been reviewed. Physical Exam Physical Exam: The patient is awake, alert and oriented 3, well developed and well nourished, normocephalic and atraumatic, lying in bed and in no acute distress. HEENT--PERRL, EOMI, mucous membranes and oropharynx dry. Neck--supple. No JVD. No bruits. Thyroid normal, trachea midline, no adenopathy. Heart--irregularly irregular. No murmurs, rubs or gallops. Lungs--few coarse breath sounds bilaterally. No respiratory distress, no accessory muscle use. Abdomen--normal bowel sounds and soft. Nontender. Nondistended. Obese Extremities--no cyanosis or clubbing. 1+ bilateral pretibial pitting edema Dermatologic--normal skin turgor, normal color, no abnormal lymph nodes, no rash. Neurologic--cranial nerves II through XII grossly intact. Rheumatologic--normal range of motion. Psychiatric--normal affect. Results & Data Results & Data ([facility]) Vital Signs (Past 12 Hours) Vital Signs Temp Pulse Resp BP Pulse Ox O2 Del Method 06/22/22 02:00 86 21 06/22/22 01:30 81 18 06/22/22 01:27 88 18 06/22/22 01:27 157/89 H 06/22/22 01:00 90 22 06/22/22 00:30 114 H 15 06/22/22 00:00 86 17 06/21/22 23:30 78 26 H 06/21/22 23:00 80 10 L 93 06/21/22 22:30 79 19 93 06/21/22 22:09 83 22 93 06/21/22 22:21 Room Air 06/21/22 22:38 92 Room Air 06/21/22 22:23 37 C 70 20 168/67 H 92 Room Air Laboratory Results Laboratory Results WBC 9.18 K/ul (4.8-10.8) 06/21/22 23:21 RBC 4.05 M/uL (3.93-5.22) 06/21/22 23:21 Hgb 13.0 g/dl (12.0-16.0) 06/21/22 23:21 Hct 41.1 % (34.1-44.9) 06/21/22 23:21 MCV 101.5 fL (80.0-100.0) H 06/21/22 23:21 MCH 32.1 pg (25.0-34.0) 06/21/22 23:21 MCHC 31.6 g/dL (32.0-36.0) L 06/21/22 23:21 RDW Std Deviation 48.2 fL (36.4-46.3) H 06/21/22 23:21 RDW Coeff of Chris 12.8 % (11.5-14.5) 06/21/22 23:21 Plt Count 170 K/uL (130-400) 06/21/22 23:21 MPV 9.5 fL (9.4-12.3) 06/21/22 23:21 Immature Gran % (Auto) 0.3 % 06/21/22 23:21 Neut % (Auto) 72.3 % 06/21/22 23:21 Lymph % (Auto) 14.1 % 06/21/22 23:21 [place] % (Auto) 12.0 % 06/21/22 23:21 Eos % (Auto) 1.0 % 06/21/22 23:21 Baso % (Auto) 0.3 % 06/21/22 23:21 Neut # (Auto) 6.64 K/uL (1.4-6.5) H 06/21/22 23:21 Lymph # (Auto) 1.29 K/uL (1.2-3.4) 06/21/22 23:21 [place] # (Auto) 1.10 K/uL (0.24-0.82) H 06/21/22 23:21 Eos # (Auto) 0.09 K/uL (0-0.50) 06/21/22 23:21 Baso # (Auto) 0.03 K/uL (0-0.2) 06/21/22 23:21 Immature Gran # (Auto) 0.03 K/uL (0.00-0.02) H 06/21/22 23:21 PT 12.8 Seconds (9.0-12.0) H 06/21/22 23:21 INR 1.2 (0.9-1.1) H 06/21/22 23:21 APTT 31.9 Seconds (21.0-31.0) H 06/21/22 23:21 PTT Ratio 1.2 06/21/22 23:21 Sodium 137 mmol/L (136-145) 06/21/22 23:21 Potassium 3.9 mmol/L (3.5-5.1) 06/21/22 23:21 Chloride 101 mmol/L (98-107) 06/21/22 23:21 Carbon Dioxide 28 mmol/L (21-32) 06/21/22 23:21 Anion Gap 8 (3-11) 06/21/22 23:21 BUN 12 mg/dl (6-23) 06/21/22 23:21 Creatinine 0.82 mg/dl (0.6-1.2) 06/21/22 23:21 Est Cr Clr Drug Dosing 65.0 ml/min 06/21/22 23:21 Est GFR ( Amer) 74.6 ml/min 06/21/22 23:21 Est GFR (Non-Af Amer) 64.3 ml/min 06/21/22 23:21 BUN/Creatinine Ratio 14.6 (10-20) 06/21/22 23:21 Glucose 152 mg/dl (70-99(Fasting)) H 06/21/22 23:21 Calcium 9.2 mg/dl (8.5-10.1) 06/21/22 23:21 Total Bilirubin 0.6 mg/dl (0.2-1.0) 06/21/22 23:21 AST 29 U/L (13-39) 06/21/22 23:21 ALT 18 U/L (7-52) 06/21/22 23:21 Alkaline Phosphatase 53 U/L (34-104) 06/21/22 23:21 Troponin I High Sens 26.9 pg/ml (0-14) H 06/22/22 01:20 Total Protein 7.9 gm/dl (6.0-8.3) 06/21/22 23:21 Albumin 4.0 gm/dl (3.4-5.0) 06/21/22 23:21 Globulin 3.9 gm/dl (2.5-4.0) 06/21/22 23:21 Albumin/Globulin Ratio 1.0 (0.9-2) 06/21/22 23:21 Lipase 11 U/L (11-82) 06/21/22 23:21 SARS-CoV-2, RNA, NAAT NEGATIVE (NEGATIVE) 06/22/22 00:42 Code Status & VTE Plan Code Status Full code VTE Prophylaxis Plan VTE Prophylaxis will be ordered: Yes PG Care Time/CCT Total # of Minutes Spent Total Time Spent with Patient: Total time spent is greater than 50% in coordination of care (as documented) at patient's floor/unit and/or counseling patient: Coding Level of Care Code 79420 Initial Inpt Care Lvl 3 Diagnoses Bronchitis J40 NSTEMI (non-ST elevated myocardial infarction) I21.4 A-fib I48.11 Atrial fibrillation type: longstanding persistent Current use of extermination supervisor anticoagulation Z79.01 Anxiety F41.9 Hyperlipidemia E78.5 (1) A-fib Atrial fibrillation type: longstanding persistent Qualified Code(s): I48.11 - Longstanding persistent atrial fibrillation
[2022-06-22] MEDS ORDERED: BENZONATATE 100 MG CAPSULE PO PRN (02:11)
[2022-06-22] MEDS ORDERED: ONDANSETRON INJ 2 MG/ML 2 ML VIAL IV PRN (02:31)
[2022-06-22] MEDS ORDERED: HEPARIN SODIUM/DEXTROSE 25,000 UNITS/500 ML BAG IV SCH (02:31)
[2022-06-22] MEDS ORDERED: ACETAMINOPHEN 500 MG TAB PO PRN (02:31)
[2022-06-22] MEDS: Heparin IV Adult Wt-Based Low-Dose *NO* Bolus Protocol IV SCH (04:01)
[2022-06-22] MEDS ORDERED: LEVOTHYROXINE SODIUM 150 MCG TABLET PO SCH (06:30)
--- NOTE | 2022-06-22 07:47 | XRay Report ---
XR chest 1V portable HISTORY: 86 years-old Female Chest Pain acute atypical chest pain COMPARISON: None TECHNIQUE: Portable AP view of the chest FINDINGS: The cardiac silhouette is enlarged. Atherosclerosis of the aorta. No pneumothorax or large pleural ef fusion. Pulmonary vascular congestion. Healed chronic left-sided rib fractures with degenerative meyer ges of the shoulders and spine. IMPRESSION: Cardiomegaly with pulmonary vascular congestion. ACT 112: Negative or not required by law. The above report was generated using voice recognition software. It may contain grammatical, syntax o r spelling errors. Electronically signed by: Kevin Harmon M.D. 06/22/2022 7:45 AM
[2022-06-22] MEDS: guaiFENesin 600 MG TABCR PO SCH ×2 (08:19→08:30)
[2022-06-22] MEDS: ALPRAZolam 0.5 MG TABLET PO SCH ×2 (08:22→08:30)
[2022-06-22] MEDS ORDERED: POLYETHYLENE (MIRALAX) 17 GM PACK PO SCH (09:00)
[2022-06-22] MEDS ORDERED: CHOLECALCIFEROL 1,000 UNITS 25 MCG TAB PO SCH (09:00)
[2022-06-22] MEDS ORDERED: CEROVITE ADV FORMULA TAB PO SCH (09:00)
[2022-06-22] MEDS ORDERED: FUROSEMIDE 20 MG TAB PO SCH (09:00)
[2022-06-22] MEDS ORDERED: cefTRIAXone SODIUM 2,000 MG in DEXTROSE 5% 50 ML IV SCH (09:00)
[2022-06-22] MEDS ORDERED: OMEGA-3 (PURIFIED FISH OIL) 1 GM CAP PO SCH (09:00)
[2022-06-22] MEDS ORDERED: ATORVASTATIN 10 MG TAB PO SCH (09:00)
[2022-06-22 10:09] LABS: Albumin Level 3.4 gm/dl (3.4-5.0); BUN Creatinine Ratio 14.3 (10-20); Calcium 8.5 mg/dl (8.5-10.1); Creatinine Clr Calc Pharmacy 69.2 ml/min; Est GFR (African American) 80.5 ml/min; Est GFR (Non-African American) 69.4 ml/min; Phosphorus 2.6 mg/dl (2.5-4.9); Potassium 3.7 mmol/L (3.5-5.1)
[2022-06-22 10:15] LABS: Troponin I High Sensitivity 32.2 pg/ml (0-14)
[2022-06-22 10:20] LABS: Partial Thromboplastin Ratio 1.8
[2022-06-22 10:31] LABS: Partial Thromboplastin Time 49.4 Seconds (21.0-31.0)
[2022-06-22] MEDS ORDERED: ALPRAZolam 0.5 MG TABLET PO PRN (11:03)
--- NOTE | 2022-06-22 12:43 | XCELERA ---
[id number] \\[id number]
[2022-06-22] MEDS ORDERED: POTASSIUM CHLORIDE 20 MEQ/15 ML UDC PO STA (15:20)
[2022-06-22] MEDS ORDERED: FUROSEMIDE INJ 20 MG/2 ML VIAL IV ONE (15:20)
--- NOTE | 2022-06-22 15:36 | Discharge Summary ---
Date of Service June 22, 2022 Admission HPI Per Admitting Provider The patient is an 86-year-old female with a past medical history including closed head injury, long-term anticoagulation with Xarelto, atrial fibrillation, recurrent UTI, gait disturbance, anxiety, hyperlipidemia, hyperglycemia, vitamin D deficiency and blood in stool. She presents with symptoms as noted above. Her cough in the emergency department sounds moist. Abnormal laboratories: Troponin 29.1, glucose 152, potassium 3.9. EKG shows atrial fibrillation with controlled rate, with minimal ST depressions in lateral chest leads Principal Diagnosis Mild acute diastolic CHF Discharge Exam Constitutional and general: No acute distress, looks biologic age Head and face: mild puffiness Nasal injury noted Eyes: No scleral icterus, extraocular movements normal Neck: Supple, no JVD Musculoskeletal: No acute joint swelling, no bony abnormalities Skin/dermatologic/integument: No rash, no purpura Hematologic and lymphatic: pallor none, no petechia Gastrointestinal/abdomen: Nondistended, soft, nonacute Neurologic: Cranial nerves intact, nonfocal Psychiatry: Awake, alert, pleasant, communicative Cardiovascular: Heart rhythm irregular Respiratory: Chest movements equal, no use of accessory muscles, no adventitious sounds Extremities: edema +, no cyanosis Discharge Data Allergies Allergy/AdvReac Type Severity Reaction Status Date / Time No Known Allergies Allergy Verified 06/22/22 00:03 Consultations 06/22/22 00:14 ED Decision to Admit Stat 06/22/22 02:31 Consult Cardiology Routine 06/22/22 09:55 Consult General Surgery Routine Hospital Course (1) Acute diastolic (congestive) heart failure: Picture most constituent; radiologically and echo correlates (dilated IVC on echo); however mild, 1 dose IV Lasix and increase home dose to 20/40; might need to increase to 40 daily; KCl on alternate days; she does not need prescriptions for Lasix and will contact PCP (2) NSTEMI (non-ST elevated myocardial infarction): Likely type II secondary to respiratory process Seen by cardiology, non-ACS, agree (3) A-fib: Resume Xarelto at discharge (4) Current use of marine oil terminal superintendent anticoagulation: See above (5) Anxiety: Continue alprazolam (6) Hyperlipidemia: Continue atorvastatin (7) Nasal fracture: Plan She feels well, wants to go home; discussed Lasix 20 mg alternating with 40 mgmight need further adjustment; she does not need prescriptions Total Time Total Time Spent Total Time Spent (In Minutes): 32 Discharge Plan Discharge Items Patient Disposition: Home - Self-Care Reason For Visit: NSTEMI, BRONCHITIS Discharge Diagnosis: Mild acute diastolic heart failure Activity: Resume your previous activity Non-emergency contact: Primary Care Provider Call non-emergency contact if: your symptoms worsen Follow-up/Referrals: Shauna Sung MD [Primary Care Provider] - (Post discharge follow-upin 1 week) Abdi Ramirez MD [Physician] - (Diastolic CHF, seen in house, 2 to 4- week follow-up) Diet: Heart Healthy Addtl Attending Provider Instructions: From tomorrow take Lasix 20 mg alternating with 40 mg daily (20 mg tomorrow, next day 40 mg, and then so on) Take your Xarelto adjust dose every day with supper Pending Studies at Discharge: No Stand-Alone Forms: My [place], Smoking Cessation Medications and DC Order Prescriptions: New potassium chloride 20 mEq tablet extended release 20 meq PO .alternate day Qty: 30 0RF Rx Instructions: Starting 06-24-2022 Continued polyethylene glycol 3350 17 gram/dose powder 17 g PO QAM Centrum Silver Women 8 mg iron-400 mcg-300 mcg tablet 1 tab PO QAM omega-3 fatty acids [Fish Oil Concentrate] 1,000 mg capsule 1,000 mg PO QAM alprazolam 0.5 mg tablet 0.5 mg PO TID Qty: 90 5RF cholecalciferol (vitamin D3) [Vitamin D3] 50 mcg (2,000 unit) Capsule 50 mcg PO QAM atorvastatin 10 mg tablet 10 mg PO QAM clobetasol 0.05 % cream 1 applic topical BID PRN (Reason: Rash) levothyroxine [Synthroid] 150 mcg tablet 150 mcg PO QAM Xarelto 20 mg tablet 20 mg PO HS acetaminophen 500 mg Tablet 500 mg PO Q6H PRN (Reason: Pain) Changed furosemide 20 mg tablet See Rx Instructions .ROUTE .COMPLEX Qty: 60 0RF Rx Instructions: From tomorrow take 20 mg and 40 mg alternate day beginning with 20 mg tomorrow Discontinued cephalexin 250 mg capsule 250 mg PO BID 7 Days Qty: 14 0RF Discharge Orders: Discharge Order (Routine); Ordered 06/22/22 Ordered By: Mounika Magana Admission Data Admit Date/Time: 06/22/22 03:20 Attending Provider: Mounika Magana Admit Provider: Jose Luis Samaniego Primary Care Provider: Shauna Sung V. Other Providers: Jose Luis Samaniego ; Abdi Ramirez ; Elizabeth Gregory Coding Level of Care Code D/C DAY MANAGEMENT >30 MINS Diagnoses Acute diastolic (congestive) heart failure I50.31 NSTEMI (non-ST elevated myocardial infarction) I21.4 A-fib I48.11 Atrial fibrillation type: longstanding persistent Current use of halfway anticoagulation Z79.01 Anxiety F41.9 Hyperlipidemia E78.5 Nasal fracture S02.2XXA
[2022-06-22] MEDS ORDERED: RIVAROXABAN 20 MG TAB PO SCH ×2 (16:30→21:00)
--- NOTE | 2022-06-22 17:09 | Cardiology Consultation ---
Date of Consultation June 22, 2022 Assessment & Plan (1) NSTEMI (non-ST elevated myocardial infarction): (2) A-fib: Plan 1. Elevated troponin: Patient did have some mildly elevated cardiac biomarkers. However, the elevation is quite mild and there was no rise or fall characterist ic of an acute coronary syndrome. Her symptoms of chest discomfort is certainly concerning, but after 3 hours of symptoms without a significant increase in cardiac biomarkers I do not think this represented an acute coronary syndrome. She has an alternative diagnosis with a respiratory infection. She did not report symptoms of chest discomfort or limiting dyspnea at other times leading up to her admission. I do not think this necessitates an ischemic evaluation given her relatively sedentary lifestyle and absence of cardiac symptoms. Also noted to have preserved LV systolic function without regional wall motion abnormality. 2. Atrial fibrillation: This was discovered incidentally. Not overtly symptomatic she seems to have adequate rate control without medication. She was started on appropriate systemic anticoagulation with Xarelto. While her weight is over the limit for use of Xarelto, this particular medication seemed to have more efficacy in obese individuals. I think it is reasonable to continue her at her current dose. History of Present Illness Reason for Consultation: Elevated troponin, chest pain Requesting Physician: Danette Attending Physician: Mounika Magana MD History of Present Illness The patient is an 86-year-old woman with a recent diagnosis of atrial fibrillation who presented to the hospital for symptoms of chest discomfort. It seems that the patient had been traveling recently and developed some upper respiratory symptoms. This is manifest primarily by a cough and congestion. Yesterday she developed some symptoms of chest pressure in the precordial area. This occurred in around 6:00 p.m. in the evening. There was radiation to the neck and jaw. She did not feel any worsening shortness of breath in the overall severity of the symptom was mild. However, the symptom persisted and she was concerned about heart trouble. Around 9:00 p.m. she presented for evaluation to the emergency room. She was administered some nitroglycerin in route to the hospital on this seemed to relieve her symptoms. She has not had any recurrence. She continues to have some chest pain with coughing. Some discomfort with expiration. Improved with deep inspiration. She has a fairly sedentary individual at baseline. She ambulates with assistive devices. She does not do recreational activity. She has not had limiting dyspnea or chest pain associated with activity. Allergies Allergy/AdvReac Type Severity Reaction Status Date / Time No Known Allergies Allergy Verified 06/22/22 00:03 Home Medications Medication Instructions Recorded Confirmed Type multivit with 1 tab PO QAM 12/29/20 06/23/22 History [id number]-mlni-KM-lutein 8 mg iron-400 mcg-300 mcg tablet (Centrum Silver Women) omega-3 fatty acids 1,000 mg 1,000 mg PO QAM 12/29/20 06/23/22 History capsule (Fish Oil Concentrate) polyethylene glycol 3350 17 17 g PO QAM 12/29/20 06/23/22 History gram/dose oral powder alprazolam 0.5 mg tablet 0.5 mg PO TID #90 tabs 03/10/22 06/23/22 Rx acetaminophen 500 mg tablet 500 mg PO Q6H PRN Pain 05/17/22 06/23/22 History atorvastatin 10 mg tablet 10 mg PO QAM 05/17/22 06/23/22 History cholecalciferol (vitamin D3) 50 50 mcg PO QAM 05/17/22 06/23/22 History mcg (2,000 unit) capsule (Vitamin D3) clobetasol 0.05 % topical cream 1 applic topical BID PRN Rash 05/17/22 06/23/22 History levothyroxine 150 mcg tablet 150 mcg PO QAM 05/17/22 06/23/22 History (Synthroid) rivaroxaban 20 mg tablet (Xarelto) 20 mg PO HS 05/17/22 06/23/22 History furosemide 20 mg tablet See Rx Instructions .Route 06/22/22 06/23/22 Rx .COMPLEX #60 tabs potassium chloride 20 mEq 20 meq PO .alternate day #30 tabs 06/22/22 06/23/22 Rx tablet,extended release cephalexin 250 mg capsule 250 mg PO BID 06/23/22 06/23/22 History Patient History Medical History (Updated 06/23/22 @ 00:07 by Sylvia Quesada) Anxiety Atrial fibrillation F/U DR JM CARD Chest pain Dyspnea on effort Fall Hypothyroidism Renal cyst, acquired UTI (urinary tract infection), uncomplicated HX Surgical History H/O: hysterectomy Family History Father Myocardial infarction Mother Diabetes CHF (congestive heart failure) Aunt Stroke Sister Diabetes Denies family history of Ovarian cancer Prostate cancer Breast cancer Lung cancer Colorectal cancer Social History Smoking Status: Never smoker Tobacco Type: Cigarettes Age Started Using Tobacco: 15; Age Quit Using Tobacco: 54; packs per day: 2; Years Smoked: 40; Number of Years Since Quit: 25; Second Hand Exposure: No; Hx Alcohol Use: Yes Alcohol type: wine Alcohol Intake Frequency: 2-3 x/Week Hx Substance Use: No Preferred Language: Citizen Of [place] Communication Ability: Effective Visual Impairment: Limited Hearing Ability: Hard of Hearing Grades 6 Through 8 Teacher Required: No Beliefs That Will Affect Care: None marital status: / Current Living Situation: Personal Care Facility Current Living Situation Comment: [facility] current occupational status: retired How many Children do You have: 4 Feels Safe at Home: Yes Childhood Exposure to Second-Hand Smoke: No Diet Comment: calorie counts caffeine: Yes Dental Care, Regularly: No Physical Activity Frequency: Daily Physical Activity Frequency Comment: upper body care and chair excersie Seatbelt Use: always Sunscreen Use: No Assistive Devices: Walker Review of Systems Review of Systems: Per HPI. No recent fevers or chills. Patient appears to have suffered a mechanical fall the day prior to admission resulting in injury to her nose Physical Exam Physical Exam: She is alert and oriented x3. Mood affect appear normal. She answered all questions appropriately. Obese HEENT: Sclerae are anicteric. Pupils are equal and reactive to light and accommodation. Extraocular movements were intact. Neuro: Cranial nerves intact Lungs: Lungs are clear to auscultation bilaterally. There are no rales wheezes or rhonchi. She has normal respiratory effort without use of accessory muscles. There is normal pulmonary excursion. Cardiac: The rhythm was irregular. S1 and S2 were normal. There are no murmurs on examination. The PMI was not markedly displaced on palpation. Abdomen: Obese Extremities: Patient has bilateral radial pulses that are equal in intensity. There is no evidence cyanosis or clubbing. Skin: There are no rashes noted on examination today. Results & Data ([facility]) Vital Signs (Past 12 Hours) Vital Signs Temp Pulse Pulse Resp BP Pulse Ox O2 Del Method 06/22/22 16:19 36.9 C 96 H 16 170/91 H 92 06/22/22 16:00 36.9 C 96 H 16 170/91 H 92 Room Air 06/22/22 14:17 83 06/22/22 11:23 36.9 C 73 18 126/60 93 06/22/22 08:00 Room Air 06/22/22 05:56 79 06/22/22 07:21 36.8 C 90 18 130/80 92 Room Air Laboratory Results Abnormal Lab Results 06/21/22 06/21/22 06/21/22 23:21 23:21 23:21 WBC 9.18 RBC 4.05 Hgb 13.0 Hct 41.1 MCV 101.5 H MCH 32.1 MCHC 31.6 L RDW Std Deviation 48.2 H RDW Coeff of Chris 12.8 Plt Count 170 MPV 9.5 Immature Gran % (Auto) 0.3 Neut % (Auto) 72.3 Lymph % (Auto) 14.1 [place] % (Auto) 12.0 Eos % (Auto) 1.0 Baso % (Auto) 0.3 Neut # (Auto) 6.64 H Lymph # (Auto) 1.29 [place] # (Auto) 1.10 H Eos # (Auto) 0.09 Baso # (Auto) 0.03 Immature Gran # (Auto) 0.03 H PT 12.8 H INR 1.2 H APTT 31.9 H PTT Ratio 1.2 Sodium 137 Potassium 3.9 Chloride 101 Carbon Dioxide 28 Anion Gap 8 BUN 12 Creatinine 0.82 Est Cr Clr Drug Dosing 65.0 Est GFR ( Amer) 74.6 Est GFR (Non-Af Amer) 64.3 BUN/Creatinine Ratio 14.6 Glucose 152 H Calcium 9.2 Phosphorus Total Bilirubin 0.6 AST 29 ALT 18 Alkaline Phosphatase 53 Troponin I High Sens 29.1 H Total Protein 7.9 Albumin 4.0 Globulin 3.9 Albumin/Globulin Ratio 1.0 Lipase 11 SARS-CoV-2, RNA, NAAT 06/22/22 06/22/22 06/22/22 00:42 01:20 09:39 WBC RBC Hgb Hct MCV MCH MCHC RDW Std Deviation RDW Coeff of Chris Plt Count MPV Immature Gran % (Auto) Neut % (Auto) Lymph % (Auto) [place] % (Auto) Eos % (Auto) Baso % (Auto) Neut # (Auto) Lymph # (Auto) [place] # (Auto) Eos # (Auto) Baso # (Auto) Immature Gran # (Auto) PT INR APTT PTT Ratio Sodium 137 Potassium 3.7 Chloride 102 Carbon Dioxide 29 Anion Gap 6 BUN 11 Creatinine 0.77 Est Cr Clr Drug Dosing 69.2 Est GFR ( Amer) 80.5 Est GFR (Non-Af Amer) 69.4 BUN/Creatinine Ratio 14.3 Glucose 214 H Calcium 8.5 Phosphorus 2.6 Total Bilirubin AST ALT Alkaline Phosphatase Troponin I High Sens 26.9 H 32.2 H Total Protein Albumin 3.4 Globulin Albumin/Globulin Ratio Lipase SARS-CoV-2, RNA, NAAT NEGATIVE 06/22/22 09:39 WBC RBC Hgb Hct MCV MCH MCHC RDW Std Deviation RDW Coeff of Chris Plt Count MPV Immature Gran % (Auto) Neut % (Auto) Lymph % (Auto) [place] % (Auto) Eos % (Auto) Baso % (Auto) Neut # (Auto) Lymph # (Auto) [place] # (Auto) Eos # (Auto) Baso # (Auto) Immature Gran # (Auto) PT INR APTT 49.4 H* PTT Ratio 1.8 Sodium Potassium Chloride Carbon Dioxide Anion Gap BUN Creatinine Est Cr Clr Drug Dosing Est GFR ( Amer) Est GFR (Non-Af Amer) BUN/Creatinine Ratio Glucose Calcium Phosphorus Total Bilirubin AST ALT Alkaline Phosphatase Troponin I High Sens Total Protein Albumin Globulin Albumin/Globulin Ratio Lipase SARS-CoV-2, RNA, NAAT Diagnostic Findings Echocardiogram obtained today revealed normal LV systolic function with ejection fraction of 60 65%. Mild LVH. Normal wall motion. Mildly dilated left atrium and inferior vena cava appear Chest x-ray obtained the time admission suggested cardiomegaly and pulmonary vascular congestion ECG Additional Comments: EKG obtained the time admission revealed atrial fibrillation with nonspecific ST and T-wave changes PG Care Time/CCT Total # of Minutes Spent Total Time Spent with Patient: Total time spent is greater than 50% in coordination of care (as documented) at patient's floor/unit and/or counseling patient: Coding Level of Care Code 28185 Initial Inpt Care Lvl 3 Diagnoses NSTEMI (non-ST elevated myocardial infarction) I21.4 A-fib I48.11 Atrial fibrillation type: longstanding persistent (1) A-fib Atrial fibrillation type: longstanding persistent Qualified Code(s): I48.11 - Longstanding persistent atrial fibrillation
--- NOTE | 2022-06-22 18:43 | Electrocardiogram Report ---
Test Reason : Blood Pressure : / mmHG Vent. Rate : 072 BPM Atrial Rate : 267 BPM P-R Int : 000 ms QRS Dur : 082 ms QT Int : 498 ms P-R-T Axes : 000 044 074 degrees QTc Int : 545 ms Atrial fibrillation Nonspecific ST and T wave abnormality Abnormal ECG No previous ECGs available Confirmed by Abdi Ramirez ([id number]) on 06/22/2022 6:42:30 PM Referred By: REFERRED SELF Confirmed By:Christos Ramirez
--- NOTE | 2022-06-22 18:44 | Electrocardiogram Report ---
Test Reason : Blood Pressure : / mmHG Vent. Rate : 088 BPM Atrial Rate : 312 BPM P-R Int : 000 ms QRS Dur : 078 ms QT Int : 358 ms P-R-T Axes : 000 052 092 degrees QTc Int : 433 ms Atrial fibrillation Nonspecific ST abnormality Abnormal ECG When compared with ECG of 21-JUN-2022 22:06, (unconfirmed) Nonspecific T wave abnormality no longer evident in Lateral leads Confirmed by Abdi Ramirez ([id number] on 06/22/2022 6:44:45 PM Referred By: REFERRED SELF Confirmed By:Christos Ramirez
[2022-06-22] MEDS ORDERED: ALPRAZolam 0.5 MG TABLET PO SCH (21:00)
== END 2022-06-22 17:13 | disposition home or self-care (01) ==
LOC: ED 21:54 → EDINP 21:54 → SUATTDRO 06-22 03:20 → EDINP 06-22 04:24 → 2S 06-22 04:50
DX: Z79.01 Long term (current) use of anticoagulants; I21.4 Non-ST elevation (NSTEMI) myocardial infarction; S02.2XXA Fracture of nasal bones, initial encounter for closed fracture; J40 Bronchitis, not specified as acute or chronic; Z79.899 Other long term (current) drug therapy; R07.2 Precordial pain; R77.8 Other specified abnormalities of plasma proteins; I50.31 Acute diastolic (congestive) heart failure; I48.11 Longstanding persistent atrial fibrillation; E78.5 Hyperlipidemia, unspecified; X58.XXXA Exposure to other specified factors, initial encounter

== ENCOUNTER 2023-04-11 11:18 | Observation (INO) ==
[2023-04-11 12:03] LABS: Basophils # (auto) 0.03 K/uL (0-0.2); Basophils % (auto) 0.4 %; Eosinophils # (auto) 0.09 K/uL (0-0.50); Eosinophils % (auto) 1.2 %; Hematocrit (blood only) 42.2 % (37.0-47.0); Hemoglobin 13.7 g/dl (12.0-16.0); Immature Granulocytes # (auto) 0.02 K/uL (0.01-0.20); Immature Granulocytes % (auto) 0.3 %; Lymphocytes # (auto) 2.07 K/uL (1.2-3.4); Mean Corpuscular Hemoglobin 32.9 pg (25.0-34.0); Mean Corpuscular Hgb Conc 32.5 g/dL (32.0-36.0); Mean Corpuscular Volume 101.4 fL (80.0-100.0); Mean Platelet Volume 10.1 fL (9.4-12.4); Monocytes # (auto) 0.68 K/uL (0.11-0.59); Monocytes % (auto) 8.9 %; Neutrophils # (auto) 4.77 K/uL (1.40-6.50); Neutrophils % (auto) 62.2 %; Platelet Count 132 K/uL (130-400); RDW Coefficient of Variation 12.7 % (11.5-14.5); RDW Standard Deviation 47.9 fL (36.4-46.3); Red Blood Count 4.16 M/uL (4.20-5.40); White Blood Count 7.66 K/ul (4.8-10.8)
--- NOTE | 2023-04-11 12:03 | XRay Report ---
XR chest 1V not portable CLINICAL HISTORY: Chest pain, nonspecific COMPARISON STUDY: Chest radiograph June 21, 2022. FINDINGS: Old left-sided rib fractures are present. There is no pneumothorax or pleural effusion. Car diomegaly is unchanged. There is no evidence for pulmonary edema. There has been no significant mckinnon e in appearance of the chest. Linear left basilar densities are similar to prior exam and favor atele ctasis or scarring. IMPRESSION: No acute cardiopulmonary findings. No change in appearance of the chest. Cardiomegaly. ACT 112: Negative or not required by law. Electronically signed by: Austin Ventura M.D. 04/11/2023 12:02 PM
--- NOTE | 2023-04-11 12:04 | Emergency Department Note ---
Impression & Plan Hypertensive urgency, Atypical chest pain, Elevated troponin, HERRERA (dyspnea on exertion) ED Provider Note NAME: SHANNEN VALLES AGE: 87 SEX: F : 1935 ARRIVES VIA: Walk-In INFORMANT: Patient, ED PROVIDER(S): Lonny Plasencia MD CHIEF COMPLAINT: Headache, chest pain MEDICAL DECISION MAKING: Patient presents due to concern for headache and chest pain. The patient is well-appearing at the bedside and really only complains of occasional pleuritic discomfort. Patient notices it to the anterior chest does have some mild r eproducible pain to the mid and left chest. IV was established blood was obtained. CT of the head obtained given the patient's reported headache this morning. Patient otherwise has a nonfocal neurologic exam does not appear to be grossly volume overloaded. The patient does suffer from chronic leg swelling which is unchanged per patient. IV was established blood work was obtained. Patient states that she has been compliant with her Xarelto. Patient has a normal white count H&H and platelet count. Kidney function is unremarkable with a BSG 178. The patient troponin is elevated at 24.9. The patient is a chronic elevations in the past. Patient was ordered a 2-hour repeat at 1:30 PM. EKG shows A-fib. Patient's chest x-ray shows no acute findings. Patient does have cardiomegaly noted which is unchanged. Patient did have another bout of chest pain so repeat EKG was obtained. No significant changes. The patient was ordered CT angiography of the head neck and chest. Patient CT head and neck were unremarkable. The patient CT angiography of the chest shows cardiomegaly but no obvious PEs. Patient reportedly was fairly dyspneic per the son just getting up to and from the bathroom. The patient was noted to be hypertensive and the patient states that she does not take anything for hypertension but does take a fluid pill which is Lasix. Given this the patient may have some associated hypertensive urgency which may be contributory. Patient was ordered IV hydralazine and I did speak with the on-call hospitalist service and the patient was admitted to the medicine service by Dr. Vargas. Prior /Outside records reviewed: I did review a note from Laruo Alva from February 27, 2023. Known history of A-fib history of long-term anticoagulant use. Patient did have her Xarelto held secondary to nosebleeds but was reinitiated on 20 mg daily. Patient reportedly has chronic stable dyspnea on exertion Differential diagnosis: Cardiac ischemia, aortic dissection, pulmonary embolism, pneumothorax, pneumonia, pericarditis, myocarditis, esophageal rupture, GERD, cholecystitis, pancreatitis, musculoskeletal, as well as other pathologies. Diagnostics, as interpreted by me: ECG: A-fib, rate of 92, normal QRS, normal axis no ST elevations. Patient's morphology appears to be grossly unchanged for comparison June 22, 2022. Repeat EKG interpreted by me A-fib, rate of 76, normal QRS normal axis no ST elevations. No significant change from earlier EKG. Cardiac monitoring: An order was placed for continuous cardiac monitoring. The monitor shows a rate of 88 with irregularly irregular rhythm. Patient was placed on pulse oximetry Medical decision rules: None Imaging studies: See below I informally reviewed the patient's CT of the head which showed no obvious ICH. HPI: Patient presents due to concern for chest pain and headache. Patient states that she woke up around 6 AM and shortly thereafter developed left-sided headache neck pain and associated chest discomfort with breathing in. Patient does have a chronic cough which is unchanged. Former history of smoking quitting in the . Patient does have chronic leg swelling but this is unchanged. Patient did have a brief stint bleeding her anticoagulant medication toward the end of January secondary to nosebleeds but the patient did reinitiate this in mid February and has been compliant. No recent surgeries procedures or hospitalizations. The patient denies any calf pain. No change in her leg swelling. Patient denies any prior history of PE. Patient states that given that her symptoms seem to persist with associated pain with breathing and she presented here for further evaluation and treatment. Patient states that she feels quite well now. No numbness tingling or focal weakness no strokelike symptoms. Patient denies any falls or trauma PAST MEDICAL HISTORY: See Below PAST SURGICAL HISTORY: See Below SOCIAL HISTORY: See Below HOME MEDICATIONS: See Below ALLERGIES: See Below VITALS: See Below PHYSICAL EXAMINATION: GENERAL: NAD, wearing a mask, non-toxic. EYE EXAM: Normal conjunctiva. PERRL, no anisocoria and EOM's grossly intact w/o pain. NECK: Supple, no nuchal rigidity, no adenopathy, non-tender. No signs of meningismus. FROM of the neck with good chin to chest and neck extension. No stridor. No carotid bruits appreciated. Chest: Mild reproducible left-sided upper chest wall pain without overlying skin changes or crepitus LUNGS: Clear to auscultation. Normal chest wall mechanics. HEART: NSR, no MRG. ABDOMEN: Abdomen soft, non-tender, no masses, no rebound or guarding. BACK: No CVA TTP. SKIN: No rashes and no bruising. UPPER EXTREMITIES: Upper extremities are grossly normal. LOWER EXTREMITIES: Grossly normal, mild pretibial edema without any obvious pitting NEURO EXAM: A&O x3, cranial nerves II-XII grossly intact, normal speech, moves all 4 extremities. [id number], no drift and no sensory deficits Past Med/Surg History Medical History A-fib Anticoagulant long-term use Anxiety Atrial fibrillation Chest discomfort Chest pain Dyspnea on effort Encounter for removal of nasal packing Epistaxis Fall Hypothyroidism Renal cyst, acquired Unspecified atrial fibrillation UTI (urinary tract infection), uncomplicated HX Surgical History H/O: hysterectomy Family History Father Myocardial infarction Mother Diabetes CHF (congestive heart failure) Aunt Stroke Sister Diabetes Denies family history of Ovarian cancer Prostate cancer Breast cancer Lung cancer Colorectal cancer Social History Smoking Status: Former smoker Tobacco Type: Cigarettes Age Started Using Tobacco: 15; Age Quit Using Tobacco: 54; packs per day: 2; Second Hand Exposure: No; Do You Dip or Chew Tobacco: No; Hx Alcohol Use: Yes Alcohol type: wine Alcohol Intake Frequency: 2-3 x/Week Hx Substance Use: No Preferred Language: Vietnamese Communication Ability: Effective Visual Impairment: Limited Hearing Ability: Hard of Hearing [place] Required: No Beliefs That Will Affect Care: None marital status: / Current Living Situation: Personal Care Facility Current Living Situation Comment: [facility] current occupational status: retired How many Children do You have: 4 Feels Safe at Home: Yes Childhood Exposure to Second-Hand Smoke: No Diet: regular Diet Comment: calorie counts caffeine: Yes Dental Care, Regularly: No Physical Activity Frequency: Daily Physical Activity Frequency Comment: upper body care and chair excersie Seatbelt Use: always Sunscreen Use: No Assistive Devices: Walker Allergies Allergies Allergy/AdvReac Type Severity Reaction Status Date / Time No Known Allergies Allergy Verified 02/27/23 14:08 Home Meds Home Medications Medication Instructions Recorded Confirmed multivit with 1 tab PO QAM 12/29/20 04/11/23 [id number] 8 mg iron-400 mcg-300 mcg tablet (Centrum Silver Women) polyethylene glycol 3350 17 17 g PO QAM 12/29/20 04/11/23 gram/dose oral powder acetaminophen 500 mg tablet 500 mg PO Q6H PRN Pain 05/17/22 04/11/23 cholecalciferol (vitamin D3) 50 50 mcg PO QAM 05/17/22 04/11/23 mcg (2,000 unit) capsule (Vitamin D3) clobetasol 0.05 % topical cream 1 applic topical BID PRN Rash 05/17/22 04/11/23 omega-3 fatty acids 1,000 mg 1,000 mg PO BID 02/05/23 04/11/23 capsule (Fish Oil Concentrate) furosemide 20 mg tablet 20 mg PO Q OTHER DAY 04/11/23 04/11/23 furosemide 40 mg tablet (Lasix) 40 mg PO Q OTHER DAY 04/11/23 04/11/23 Previous Rx's Medication Instructions Recorded atorvastatin 10 mg tablet 10 mg PO QAM #90 tabs 09/11/22 levothyroxine 150 mcg tablet 150 mcg PO QAM #90 tabs 09/11/22 (Synthroid) rivaroxaban 20 mg tablet (Xarelto) 20 mg PO HS #90 tabs 09/11/22 potassium chloride 20 mEq 20 meq PO .QOD #45 tabs 09/25/22 tablet,extended release acetaminophen 300 mg-codeine 30 mg 0.5 - 1 tab PO BID PRN pain #60 02/05/23 tablet tabs alprazolam 0.5 mg tablet 0.5 mg PO TID #90 tabs 02/05/23 Results & Data (ED) Vital Signs Vital Signs - 24 hr 04/11/23 11:22 04/11/23 12:29 04/11/23 14:11 Temperature 36.5 C Temperature Source Temporal Artery Scan Pulse Rate 93 H 73 Pulse Rate [Left Finger] 72 Pulse Rhythm [Left Finger] Regular Pulse Strength [Left Finger] Normal Respiratory Rate 18 20 Respiratory Effort / Characteristics Non-Labored Spontaneous Respiratory Depth Normal Normal Respiratory Pattern Regular Blood Pressure 136/71 Blood Pressure [Right Arm] 193/80 H Blood Pressure Mean 92 Blood Pressure Mean [Right Arm] 117 Blood Pressure Position Sitting Blood Pressure Position [Right Arm] Sitting Pulse Oximetry 95 98 Oxygen Delivery Method Room Air Room Air Sepsis Recent Fever Within 48 Hours No Sepsis New/Unexplained Change in Mental Status No Sepsis Action Taken by Nursing No Action Required 04/11/23 15:52 04/11/23 16:32 Temperature Temperature Source Pulse Rate 78 Pulse Rate [Left Finger] 85 Pulse Rhythm [Left Finger] Pulse Strength [Left Finger] Respiratory Rate Respiratory Effort / Characteristics Respiratory Depth Respiratory Pattern Blood Pressure Blood Pressure [Right Arm] 184/63 H Blood Pressure Mean Blood Pressure Mean [Right Arm] 103 Blood Pressure Position Blood Pressure Position [Right Arm] Pulse Oximetry Oxygen Delivery Method Sepsis Recent Fever Within 48 Hours Sepsis New/Unexplained Change in Mental Status Sepsis Action Taken by [facility] Medications Current Medication List: was personally reviewed by me Laboratory Data Attestation: I reviewed the patient's lab results. 04/11/23 11:31 04/11/23 11:31 Lab Results 04/11/23 04/11/23 04/11/23 Range/Units 11:31 11:31 12:08 WBC 7.66 (4.8-10.8) K/ul RBC 4.16 L (4.20-5.40) M/uL Hgb 13.7 (12.0-16.0) g/dl Hct 42.2 (37.0-47.0) % MCV 101.4 H (80.0-100.0) fL MCH 32.9 (25.0-34.0) pg MCHC 32.5 (32.0-36.0) g/dL RDW Std Deviation 47.9 H (36.4-46.3) fL RDW Coeff of Chris 12.7 (11.5-14.5) % Plt Count 132 (130-400) K/uL MPV 10.1 (9.4-12.4) fL Immature Gran % (Auto) 0.3 % Neut % (Auto) 62.2 % Lymph % (Auto) 27.0 % [place] % (Auto) 8.9 % Eos % (Auto) 1.2 % Baso % (Auto) 0.4 % Neut # (Auto) 4.77 (1.40-6.50) K/uL Lymph # (Auto) 2.07 (1.2-3.4) K/uL [place] # (Auto) 0.68 H (0.11-0.59) K/uL Eos # (Auto) 0.09 (0-0.50) K/uL Baso # (Auto) 0.03 (0-0.2) K/uL Immature Gran # (Auto) 0.02 (0.01-0.20) K/uL PT 14.5 H (9.0-12.0) Seconds INR 1.3 H (0.9-1.1) APTT 33.1 H (21.0-31.0) Seconds PTT Ratio 1.2 Sodium 136 (136-145) mmol/L Potassium 4.3 (3.5-5.1) mmol/L Chloride 104 (98-107) mmol/L Carbon Dioxide 27 (21-32) mmol/L Anion Gap 5 (3-11) BUN 16 (6-23) mg/dl Creatinine 0.85 (0.6-1.2) mg/dl Est Cr Clr Drug Dosing 64.9 ml/min Est GFR ( Amer) 70.9 ml/min Est GFR (Non-Af Amer) 61.2 ml/min BUN/Creatinine Ratio 18.8 (10-20) Glucose 178 H (70-99(Fasting)) mg/dl Calcium 9.2 (8.6-10.3) mg/dl Total Bilirubin 0.6 (0.2-1.0) mg/dl AST 27 (13-39) U/L ALT 18 (7-52) U/L Alkaline Phosphatase 46 (34-104) U/L Troponin I High Sens 24.9 H (0-14) pg/ml Total Protein 6.8 (6.0-8.3) gm/dl Albumin 3.6 (3.4-5.0) gm/dl Globulin 3.2 (2.5-4.0) gm/dl Albumin/Globulin Ratio 1.1 (0.9-2) SARS-CoV-2, RNA, NAAT (NEGATIVE) 04/11/23 04/11/23 Range/Units 15:28 15:48 WBC (4.8-10.8) K/ul RBC (4.20-5.40) M/uL Hgb (12.0-16.0) g/dl Hct (37.0-47.0) % MCV (80.0-100.0) fL MCH (25.0-34.0) pg MCHC (32.0-36.0) g/dL RDW Std Deviation (36.4-46.3) fL RDW Coeff of Chris (11.5-14.5) % Plt Count (130-400) K/uL MPV (9.4-12.4) fL Immature Gran % (Auto) % Neut % (Auto) % Lymph % (Auto) % [place] % (Auto) % Eos % (Auto) % Baso % (Auto) % Neut # (Auto) (1.40-6.50) K/uL Lymph # (Auto) (1.2-3.4) K/uL [place] # (Auto) (0.11-0.59) K/uL Eos # (Auto) (0-0.50) K/uL Baso # (Auto) (0-0.2) K/uL Immature Gran # (Auto) (0.01-0.20) K/uL PT (9.0-12.0) Seconds INR (0.9-1.1) APTT (21.0-31.0) Seconds PTT Ratio Sodium (136-145) mmol/L Potassium (3.5-5.1) mmol/L Chloride (98-107) mmol/L Carbon Dioxide (21-32) mmol/L Anion Gap (3-11) BUN (6-23) mg/dl Creatinine (0.6-1.2) mg/dl Est Cr Clr Drug Dosing ml/min Est GFR ( Amer) ml/min Est GFR (Non-Af Amer) ml/min BUN/Creatinine Ratio (10-20) Glucose (70-99(Fasting)) mg/dl Calcium (8.6-10.3) mg/dl Total Bilirubin (0.2-1.0) mg/dl AST (13-39) U/L ALT (7-52) U/L Alkaline Phosphatase (34-104) U/L Troponin I High Sens 26.1 H (0-14) pg/ml Total Protein (6.0-8.3) gm/dl Albumin (3.4-5.0) gm/dl Globulin (2.5-4.0) gm/dl Albumin/Globulin Ratio (0.9-2) SARS-CoV-2, RNA, NAAT NEGATIVE (NEGATIVE) Administered Medications Furosemide (Furosemide 40 Mg Tab) 40 mg PO Q48H LAMONT Stop: 05/11/23 16:59 Last Admin: 04/11/23 18:02 Dose: 40 mg Documented By: VANESSAW Morphine Sulfate (Morphine Sulfate 2 Mg/Ml Carp) 2 mg IV Q30M PRN PRN Reason: Chest Pain Stop: 04/25/23 17:03 Last Admin: 04/11/23 18:01 Dose: 2 mg Documented By: MATT Potassium Chloride (Potassium Chloride Crtab 20 Meq Tabcr) 20 meq PO Q48H LAMONT Stop: 05/11/23 16:59 Last Admin: 04/11/23 18:02 Dose: 20 meq Documented By: MATT Discontinued Medications Hydralazine HCl (Hydralazine Hcl 20 Mg/Ml Vial) 5 mg IV NOW ONE Stop: 04/11/23 15:30 Last Admin: 04/11/23 15:40 Dose: 5 mg Documented By: MATT Ioversol (Optiray 320 500ml) 105 ml IV ONCE ONE Stop: 04/11/23 13:51 Last Admin: 04/11/23 13:51 Dose: 105 ml Documented By: MAGDI Lidocaine (Lidocaine 5% 1 Patch) 1 patch TD NOW STA Stop: 04/11/23 13:13 Last Admin: 04/11/23 14:09 Dose: 1 patch Documented By: CALDERON Lorazepam (Lorazepam 2 Mg/1 Ml Vial) 0.25 mg IV NOW STA Stop: 04/11/23 13:13 Last Admin: 04/11/23 14:09 Dose: Not Given Documented By: CALDERON Losartan Potassium (Losartan Potassium 25 Mg Tab) 25 mg PO NOW STA Stop: 04/11/23 16:52 Last Admin: 04/11/23 18:02 Dose: 25 mg Documented By: MATT Imaging Data Radiologist's Impression: Chest X-Ray 04/11/23 11:32 XR chest 1V not portable CLINICAL HISTORY: Chest pain, nonspecific COMPARISON STUDY: Chest radiograph June 21, 2022. FINDINGS: Old left-sided rib fractures are present. There is no pneumothorax or pleural effusion. Cardiomegaly is unchanged. There is no evidence for pulmonary edema. There has been no significant change in appearance of the chest. Linear left basilar densities are similar to prior exam and favor atelectasis or scarring. IMPRESSION: No acute cardiopulmonary findings. No change in appearance of the chest. Cardiomegaly. ACT 112: Negative or not required by law. Electronically signed by: Austin Ventura M.D. 04/11/2023 12:[address] 04/11/23 12:27 CT head/brain wo con CLINICAL HISTORY: L sided headache Technique: Contiguous axial CT images of the head were acquired from the base of the skull to the vertex without intravenous contrast administration. Images were viewed in brain, subdural and bone windows. Automated dose lowering techniques and/or adjustment according to patient size were utilized for this exam. Comparison: Comparison is made to CT head 06/20/2022 Findings: The ventricles, basal cisterns, and cerebral sulci are normal. There is no acute intracranial hemorrhage or evidence of acute territorial infarction. Neither mass effect, shift of the midline structures, nor abnormal extra-axial fluid col lections are shown. Imaged portions of the paranasal sinuses and mastoid air cells are clear. The orbits appear normal. There are no acute fractures of the calvaria or scalp swelling. Impression: No acute intracranial hemorrhage, no evidence of acute territorial infarction or other acute intracranial disease process. ACT 112: Negative or not required by law. Electronically signed by: Franck Hermosillo M.D. 04/11/2023 1:02 PM Chest CTA 04/11/23 13:12 CT ANGIOGRAPHY OF THE CHEST, PULMONARY EMBOLUS PROTOCOL CLINICAL HISTORY: Pleuritic chest pain. Evaluate for pulmonary embolus. COMPARISON STUDY: Chest radiographs June 21, 2022 and April 11, 2023. TECHNIQUE: Following IV administration of 105 mL of Optiray, helical axial images of the chest were obtained utilizing the pulmonary embolus protocol. Maximal intensity projections and sagittal and coronal reformats were viewed on an independent 3D workstation. IV contrast was administered without complication. Automated exposure control was utilized for the study. A dose lowering technique was utilized adhering to the principles of ALARA. CT DOSE: 1181.39 mGy.cm FINDINGS: No pulmonary emboli are identified. There is no thoracic aortic dissection. There is mild dilatation of the ascending aorta, measuring 4.2 cm. Moderate cardiomegaly and coronary artery calcification is present. There is no pneumothorax or pleural effusion. No consolidation to suggest pneumonia. Linear and groundglass opacities favor atelectasis. No acute fractures within the bony thorax. Nodularity of the liver surface is unchanged from prior abdominal CT. This favors cirrhosis. IMPRESSION: 1. No pulmonary emboli identified. 2. No acute intrathoracic findings. 3. Moderate cardiomegaly. 4. Cirrhosis. ACT 112: Negative or not required by law. Electronically signed by: Austin Ventura M.D. 04/11/2023 2:44 PM Head CTA 04/11/23 13:12 CT angio head w con CLINICAL HISTORY: L sided head/neck pain, pleuritic CP TECHNIQUE: CT angiography of the head was performed following intravenous administration of iodinated contrast. Coronal and sagittal MIPS were obtained from the axial data set and were submitted for review. Automated dose lowering techniques and/or adjustment according to patient size were utilized for this examination. All measurements were calculated based on NASCET criteria. Comparison: Comparison is made to CT head 04/01/2023 FINDINGS: CTA Head: The anterior and posterior cerebral circulations are patent. origin of the left posterior cerebral artery is seen. IMPRESSION: No occlusion, hemodynamically significant stenosis, aneurysm, dissection, or arteriovenous malformation in the major intracranial arteries. Assessment of stenosis of the internal carotid arteries is based on NASCET criteria. ACT 112: Negative or not required by law. Electronically signed by: Franck Hermosillo M.D. 04/11/2023 2:09 PM Neck CTA 04/11/23 13:12 NECK CTA HISTORY: L sided head/neck pain, pleuritic CP TECHNIQUE: Multiaxial CT images of the neck were performed following the intravenous administration of contrast to evaluate the major cervical vessels. Maximum intensity projection images were also obtained. All measurements were ca lculated based on NASCET criteria. A dose lowering technique was utilized adhering to the principles of ALARA. COMPARISON STUDY: None. FINDINGS: The aortic arch and proximal great vessels are widely patent. There is no significant stenosis, occlusion, or dissection identified within the bilateral common carotid, internal carotid, or vertebral arteries. There is a 4 mm nodule within the left upper lobe on image 27. No acute fractures within the cervical spine. Mild calcified plaque within the aortic arch and proximal great vessels. Calcified plaque within the bilateral carotid bifurcations. IMPRESSION: No significant stenosis, occlusion, or dissection identified within the carotid or vertebral arteries. ACT 112: Negative or not required by law. Electronically signed by: Dylan Padron M.D. 04/11/2023 2:08 PM Discharge Plan Visit Data Chief Complaint: Chest Pain Stated Complaint: CHEST PAIN, SOB ED Provider: Lonny Plasencia Discharge Problem: Hypertensive urgency, Atypical chest pain, Elevated troponin, HERRERA (dyspnea on exertion) Patient Disposition: Admitted As Inpatient Discharge Instructions Interventions: ED Discharge Assessment Last Done: 04/11/23 16:54
[2023-04-11 12:13] LABS: Albumin Globulin Ratio 1.1 (0.9-2); Albumin Level 3.6 gm/dl (3.4-5.0); BUN Creatinine Ratio 18.8 (10-20); Bilirubin,Total 0.6 mg/dl (0.2-1.0); Calcium 9.2 mg/dl (8.6-10.3); Creatinine Clr Calc Pharmacy 64.9 ml/min; Est GFR (African American) 70.9 ml/min; Est GFR (Non-African American) 61.2 ml/min; Globulin 3.2 gm/dl (2.5-4.0); Potassium 4.3 mmol/L (3.5-5.1); Total Protein 6.8 gm/dl (6.0-8.3)
[2023-04-11 12:18] LABS: Troponin I High Sensitivity 24.9 pg/ml (0-14)
--- NOTE | 2023-04-11 13:04 | CT Scan Report ---
CT head/brain wo con CLINICAL HISTORY: L sided headache Technique: Contiguous axial CT images of the head were acquired from the base of the skull to the nasima candido without intravenous contrast administration. Images were viewed in brain, subdural and bone [facility]. Automated dose lowering techniques and/or adjustment according to patient size were utilized for this exam. Comparison: Comparison is made to CT head 06/20/2022 Findings: The ventricles, basal cisterns, and cerebral sulci are normal. There is no acute intracranial hemorrh age or evidence of acute territorial infarction. Neither mass effect, shift of the midline structures , nor abnormal extra-axial fluid collections are shown. Imaged portions of the paranasal sinuses and mastoid air cells are clear. The orbits appear normal. There are no acute fractures of the calvaria or scalp swelling. Impression: No acute intracranial hemorrhage, no evidence of acute territorial infarction or other acute intracra nial disease process. ACT 112: Negative or not required by law. Electronically signed by: Franck Hermosillo M.D. 04/11/2023 1:02 PM
[2023-04-11] MEDS ORDERED: LORazepam 2 MG/1 ML VIAL IV STA (13:12)
[2023-04-11] MEDS ORDERED: LIDOCAINE 5% 1 PATCH TD STA (13:12)
[2023-04-11 13:45] LABS: INR 1.3 (0.9-1.1); Partial Thromboplastin Ratio 1.2; Partial Thromboplastin Time 33.1 Seconds (21.0-31.0); Prothrombin Time 14.5 Seconds (9.0-12.0)
[2023-04-11] MEDS ORDERED: OPTIRAY 320 500ml IV ONE (13:50)
--- NOTE | 2023-04-11 14:09 | CT Scan Report ---
NECK CTA HISTORY: L sided head/neck pain, pleuritic CP TECHNIQUE: Multiaxial CT images of the neck were performed following the intravenous administration o f contrast to evaluate the major cervical vessels. Maximum intensity projection images were also obta ined. All measurements were calculated based on NASCET criteria. A dose lowering technique was utili zed adhering to the principles of ALARA. COMPARISON STUDY: None. FINDINGS: The aortic arch and proximal great vessels are widely patent. There is no significant sten osis, occlusion, or dissection identified within the bilateral common carotid, internal carotid, or v ertebral arteries. There is a 4 mm nodule within the left upper lobe on image 27. No acute fractures within the cervical spine. Mild calcified plaque within the aortic arch and proximal great vessels. C alcified plaque within the bilateral carotid bifurcations. IMPRESSION: No significant stenosis, occlusion, or dissection identified within the carotid or vertebral arteries . ACT 112: Negative or not required by law. Electronically signed by: Dylan Padron M.D. 04/11/2023 2:08 PM
--- NOTE | 2023-04-11 14:11 | CT Scan Report ---
CT angio head w con CLINICAL HISTORY: L sided head/neck pain, pleuritic CP TECHNIQUE: CT angiography of the head was performed following intravenous administration of iodinated contrast. Coronal and sagittal MIPS were obtained from the axial data set and were submitted for rev iew. Automated dose lowering techniques and/or adjustment according to patient size were utilized fo r this examination. All measurements were calculated based on NASCET criteria. Comparison: Comparison is made to CT head 04/01/2023 FINDINGS: CTA Head: The anterior and posterior cerebral circulations are patent. origin of the left post erior cerebral artery is seen. IMPRESSION: No occlusion, hemodynamically significant stenosis, aneurysm, dissection, or arteriovenous malformati on in the major intracranial arteries. Assessment of stenosis of the internal carotid arteries is based on NASCET criteria. ACT 112: Negative or not required by law. Electronically signed by: Franck Hermosillo M.D. 04/11/2023 2:09 PM
--- NOTE | 2023-04-11 14:45 | CT Scan Report ---
CT ANGIOGRAPHY OF THE CHEST, PULMONARY EMBOLUS PROTOCOL CLINICAL HISTORY: Pleuritic chest pain. Evaluate for pulmonary embolus. COMPARISON STUDY: Chest radiographs June 21, 2022 and April 11, 2023. TECHNIQUE: Following IV administration of 105 mL of Optiray, helical axial images of the chest were o btained utilizing the pulmonary embolus protocol. Maximal intensity projections and sagittal and cor onal reformats were viewed on an independent 3D workstation. IV contrast was administered without co mplication. Automated exposure control was utilized for the study. A dose lowering technique was ut ilized adhering to the principles of ALARA. CT DOSE: 1181.39 mGy.cm FINDINGS: No pulmonary emboli are identified. There is no thoracic aortic dissection. There is mild dilatation of the ascending aorta, measuring 4.2 cm. Moderate cardiomegaly and coronary artery calcif ication is present. There is no pneumothorax or pleural effusion. No consolidation to suggest pneumon ia. Linear and groundglass opacities favor atelectasis. No acute fractures within the bony thorax. No dularity of the liver surface is unchanged from prior abdominal CT. This favors cirrhosis. IMPRESSION: 1. No pulmonary emboli identified. 2. No acute intrathoracic findings. 3. Moderate cardiomegaly. 4. Cirrhosis. ACT 112: Negative or not required by law. Electronically signed by: Austin Ventura M.D. 04/11/2023 2:44 PM
[2023-04-11] MEDS ORDERED: hydrALAZINE HCL 20 MG/ML VIAL IV ONE (15:29)
--- NOTE | 2023-04-11 15:57 | History & Physical Report ---
Date of Service April 11, 2023 Assessment & Plan (1) Hypertensive urgency: Plan: Acute unstable - S/P hydralazine in the ER 5mg x 1 BP improved from 193 to 184 - Then Ordered Losartan 5mg po x 1 dose - Hydralazine 2.5mg one q 6hours as needed - trend troponin - continue home Xarelto - await echo - check D Dimer (inspiratory pain) - will get Biofire (may have upper respiratory illness starting) - Repeat AM labs - Tylenol q 8H as needed for headache (2) Anxiety: Plan: Chronic Xanax as needed (3) Headache: Plan: Acute Tylenol as needed (4) Elevated hemoglobin A1c: Plan: Last HgbA1C was 7.3 in January. Patient tells me that her and her PCP opted not to start any treatment for diabetes due to her age, and that she did not want to start any medications for this. History of Present Illness Chief Complaint: chest pain and headache Primary Care Provider: Shauna Sung MD Miranda Gates is a 87 year old female with a past medical history of HTN, A fib on Xarelto, hypothyroidism, anxiety and obesity who presented to the ER today with complaints of headache and left sided jaw, neck and upper chest pain since 6 AM today. Patient denies any current tobacco abuse, she quit in the . Patient is not sure if the headache awoke her or if she just awoke at 6 AM. None the less when she woke up she realized she had left sided head, neck and jaw pain. She denies any diaphoresis, nausea, vomiting, heart burn or other GI sxs. She denies any chest pains. She admits that the neck pain is reproducible by palpating on her left lymph node area. She denies any fevers, chills, congestion, cough. She admits that the pain was also increased with taking a deep inspiration. She states she has a hx of HTN and takes Lasix for this. Alternating doses of 20mg and 40mg. She states normally her BP at home consistently runs in the 130 range systolically. Patient states she took a xanax and also a Tylenol #3 and these helped slightly with her symptoms. Patient was evaluated in the ER and found to have hypertensive urgency. Systolic BP upon admission was 193. Patient was given Hydralazine 5mg IV and the systolic BP has improved to 184. A Lidoderm patch was applied to the left neck, per patient this has not helped her sxs. Patient follows with Dr Alva and last echo was in June 2022. Patient had CTA head, neck and chest with no acute changes. CBC revealed a stable and normal H&H, normal wbc count, troponin was slightly elevated at 24.9 (upper 20s and low 30s) Patient became anxious after my exam and told Dr Mcdowell that she was now having severe inspiratory pain and also that her grandson had a illness and fever recently. She also was asking for something for pain and anxiety. (Patient also states she has a hx of an elevated HgbA1C of 7.3 recently and patient and her PCP opted to not treat for diabetes, due to her age.) Allergies Allergy/AdvReac Type Severity Reaction Status Date / Time No Known Allergies Allergy Verified 02/27/23 14:08 Home Medications Medication Instructions Recorded Confirmed Type multivit with 1 tab PO QAM 12/29/20 04/11/23 History svnlqlxk-[id number]-GR-lutein 8 mg iron-400 mcg-300 mcg tablet (Centrum Silver Women) polyethylene glycol 3350 17 17 g PO QAM 12/29/20 04/11/23 History gram/dose oral powder acetaminophen 500 mg tablet 500 mg PO Q6H PRN Pain 05/17/22 04/11/23 History cholecalciferol (vitamin D3) 50 50 mcg PO QAM 05/17/22 04/11/23 History mcg (2,000 unit) capsule (Vitamin D3) clobetasol 0.05 % topical cream 1 applic topical BID PRN Rash 05/17/22 04/11/23 History atorvastatin 10 mg tablet 10 mg PO QAM #90 tabs 09/11/22 04/11/23 Rx levothyroxine 150 mcg tablet 150 mcg PO QAM #90 tabs 09/11/22 04/11/23 Rx (Synthroid) rivaroxaban 20 mg tablet (Xarelto) 20 mg PO HS #90 tabs 09/11/22 04/11/23 Rx potassium chloride 20 mEq 20 meq PO .QOD #45 tabs 09/25/22 04/11/23 Rx tablet,extended release acetaminophen 300 mg-codeine 30 mg 0.5 - 1 tab PO BID PRN pain #60 02/05/23 04/11/23 Rx tablet tabs alprazolam 0.5 mg tablet 0.5 mg PO TID #90 tabs 02/05/23 04/11/23 Rx omega-3 fatty acids 1,000 mg 1,000 mg PO BID 02/05/23 04/11/23 History capsule (Fish Oil Concentrate) furosemide 20 mg tablet 20 mg PO Q OTHER DAY 04/11/23 04/11/23 History furosemide 40 mg tablet (Lasix) 40 mg PO Q OTHER DAY 04/11/23 04/11/23 History Past Med/Surg History Medical History A-fib Anticoagulant long-term use Anxiety Atrial fibrillation Chest discomfort Chest pain Dyspnea on effort Encounter for removal of nasal packing Epistaxis Fall Hypothyroidism Renal cyst, acquired Unspecified atrial fibrillation UTI (urinary tract infection), uncomplicated HX Surgical History H/O: hysterectomy Family History Father Myocardial infarction Mother Diabetes CHF (congestive heart failure) Aunt Stroke Sister Diabetes Denies family history of Ovarian cancer Prostate cancer Breast cancer Lung cancer Colorectal cancer Social History Smoking Status: Former smoker Tobacco Type: Cigarettes Age Started Using Tobacco: 15; Age Quit Using Tobacco: 54; packs per day: 2; Second Hand Exposure: No; Do You Dip or Chew Tobacco: No; Hx Alcohol Use: Yes Alcohol type: wine Alcohol Intake Frequency: 2-3 x/Week Hx Substance Use: No Preferred Language: Serbian Communication Ability: Effective Visual Impairment: Limited Hearing Ability: Hard of Hearing Inner Layer Scrubber Tender Required: No Beliefs That Will Affect Care: None marital status: / Current Living Situation: Personal Care Facility Current Living Situation Comment: LIVES [facility]DEPEND[facility] current occupational status: retired How many Children do You have: 4 Feels Safe at Home: Yes Childhood Exposure to Second-Hand Smoke: No Diet: regular Diet Comment: calorie counts caffeine: Yes Dental Care, Regularly: No Physical Activity Frequency: Daily Physical Activity Frequency Comment: upper body care and chair excersie Seatbelt Use: always Sunscreen Use: No Assistive Devices: Walker Review of Systems Constitutional: no fever, no chills, no weight loss and no weight gain Eyes: no blind spots, no diplopia, no loss of peripheral vision, not seeing flashes, no spots in vision and no problem reported Ear, Nose, Mouth, Throat: + ear pain; no ear discharge, no ear trauma, no hearing loss, no nasal congestion, no post nasal drip, no nasal obstruction and no sinus pain/pressure Respiratory: + pain on inspiration; no cough, no chest congestion, no dyspnea, no hemoptysis and no wheezing Cardiovascular: + chest pain and + radiating jaw, neck or arm pain; no chest pain with activity, no dyspnea, no orthopnea, no lightheadedness, no edema and no calf pain Gastrointestinal: no abdominal pain, no nausea, no vomiting and no dysphagia Genitourinary: no dysuria, no urinary frequency, no nocturia and no flank pain Musculoskeletal: + neck pain; no joint pain, no stiffness, no myalgia and no body aches Integumentary: no rash, no lesions and no new lesions Neurologic: + headache(s); no gait abnormality, no unsteadiness, no falls, no generalized weakness, no paralysis, no tingling, no numbness, no paresthesia, no seizure-like activity, no dizziness, no syncope, no abnormal speech and no confusion Psychiatric: + anxiety; no hopelessness, no irritability and no confusion Endocrine: no polydipsia, no polyphagia and no polyuria Physical Exam Constitutional: cooperative and + overweight; not in distress ENMT: external ear and nose normal, oropharynx normal Neck: trachea midline and + neck tender shotty and tender left tonsillar lymph node, no bruits no pain to palpation scalp, sinuses, ears or temporal area Respiratory: normal respiratory effort, lungs clear to auscultation Cardiovascular: Rate/Rhythm: + irregularly irregular Extremities: normal capillary refill; no calf tenderness and no edema Gastrointestinal (Abdomen): normal bowel sounds, soft, nontender, no hepatosplenomegaly Skin: no rashes, warm and dry Psychiatric: A+Ox3, euthymic affect anxious Results & Data Results & Data Vital Signs (Past 12 Hours) Vital Signs Temp Pulse Pulse Resp BP BP Pulse Ox 04/11/23 15:52 85 184/63 H 04/11/23 14:11 72 20 193/80 H 98 04/11/23 12:29 73 04/11/23 11:22 36.5 C 93 H 18 136/71 95 O2 Del Method 04/11/23 15:52 04/11/23 14:11 Room Air 04/11/23 12:29 04/11/23 11:22 Room Air Laboratory Results Abnormal lab results 04/11/23 04/11/23 04/11/23 Range/Units 11:31 11:31 12:08 RBC 4.16 L (4.20-5.40) M/uL MCV 101.4 H (80.0-100.0) fL RDW Std Deviation 47.9 H (36.4-46.3) fL Lee # (Auto) 0.68 H (0.11-0.59) K/uL PT 14.5 H (9.0-12.0) Seconds INR 1.3 H (0.9-1.1) APTT 33.1 H (21.0-31.0) Seconds Glucose 178 H (70-99(Fasting)) mg/dl Troponin I High Sens 24.9 H (0-14) pg/ml Diagnostic Findings Chest X-Ray 04/11/23 11:32 XR chest 1V not portable CLINICAL HISTORY: Chest pain, nonspecific COMPARISON STUDY: Chest radiograph June 21, 2022. FINDINGS: Old left-sided rib fractures are present. There is no pneumothorax or pleural effusion. Cardiomegaly is unchanged. There is no evidence for pulmonary edema. There has been no significant change in appearance of the chest. Linear left basilar densities are similar to prior exam and favor atelectasis or scarring. IMPRESSION: No acute cardiopulmonary findings. No change in appearance of the chest. Cardiomegaly. ACT 112: Negative or not required by law. Electronically signed by: Austin Ventura M.D. 04/11/2023 12:[address] 04/11/23 12:27 CT head/brain wo con CLINICAL HISTORY: L sided headache Technique: Contiguous axial CT images of the head were acquired from the base of the skull to the vertex without intravenous contrast administration. Images were viewed in brain, subdural and bone windows. Automated dose lowering techniques and/or adjustment according to patient size were utilized for this exam. Comparison: Comparison is made to CT head 06/20/2022 Findings: The ventricles, basal cisterns, and cerebral sulci are normal. There is no acute intracranial hemorrhage or evidence of acute territorial infarction. Neither mass effect, shift of the midline structures, nor abnormal extra-axial fluid collections are shown. Imaged portions of the paranasal sinuses and mastoid air cells are clear. The orbits appear normal. There are no acute fractures of the calvaria or scalp swelling. Impression: No acute intracranial hemorrhage, no evidence of acute territorial infarction or other acute intracranial disease process. ACT 112: Negative or not required by law. Electronically signed by: Franck Hermosillo M.D. 04/11/2023 1:02 PM Chest CTA 04/11/23 13:12 CT ANGIOGRAPHY OF THE CHEST, PULMONARY EMBOLUS PROTOCOL CLINICAL HISTORY: Pleuritic chest pain. Evaluate for pulmonary embolus. COMPARISON STUDY: Chest radiographs June 21, 2022 and April 11, 2023. TECHNIQUE: Following IV administration of 105 mL of Optiray, helical axial images of the chest were obtained utilizing the pulmonary embolus protocol. Maximal intensity projections and sagittal and coronal reformats were viewed on an independent 3D workstation. IV contrast was administered without compli cation. Automated exposure control was utilized for the study. A dose lowering technique was utilized adhering to the principles of ALARA. CT DOSE: 1181.39 mGy.cm FINDINGS: No pulmonary emboli are identified. There is no thoracic aortic dissection. There is mild dilatation of the ascending aorta, measuring 4.2 cm. Moderate cardiomegaly and coronary artery calcification is present. There is no pneumothorax or pleural effusion. No consolidation to suggest pneumonia. Linear and groundglass opacities favor atelectasis. No acute fractures within the bony thorax. Nodularity of the liver surface is unchanged from prior abdominal CT. This favors cirrhosis. IMPRESSION: 1. No pulmonary emboli identified. 2. No acute intrathoracic findings. 3. Moderate cardiomegaly. 4. Cirrhosis. ACT 112: Negative or not required by law. Electronically signed by: Austin Ventura M.D. 04/11/2023 2:44 PM Head CTA 04/11/23 13:12 CT angio head w con CLINICAL HISTORY: L sided head/neck pain, pleuritic CP TECHNIQUE: CT angiography of the head was performed following intravenous administration of iodinated contrast. Coronal and sagittal MIPS were obtained from the axial data set and were submitted for review. Automated dose lowering techniques and/or adjustment according to patient size were utilized for this examination. All measurements were calculated based on NASCET criteria. Comparison: Comparison is made to CT head 04/01/2023 FINDINGS: CTA Head: The anterior and posterior cerebral circulations are patent. origin of the left posterior cerebral artery is seen. IMPRESSION: No occlusion, hemodynamically significant stenosis, aneurysm, dissection, or arteriovenous malformation in the major intracranial arteries. Assessment of stenosis of the internal carotid arteries is based on NASCET criteria. ACT 112: Negative or not required by law. Electronically signed by: Franck Hermosillo M.D. 04/11/2023 2:09 PM Neck CTA 04/11/23 13:12 NECK CTA HISTORY: L sided head/neck pain, pleuritic CP TECHNIQUE: Multiaxial CT images of the neck were performed following the intravenous administration of contrast to evaluate the major cervical vessels. Maximum intensity projection images were also obtained. All measurements were calculated based on NASCET criteria. A dose lowering technique was utilized adhering to the principles of ALARA. COMPARISON STUDY: None. FINDINGS: The aortic arch and proximal great vessels are widely patent. There is no significant stenosis, occlusion, or dissection identified within the bilateral common carotid, internal carotid, or vertebral arteries. There is a 4 mm nodule within the left upper lobe on image 27. No acute fractures within the cervical spine. Mild calcified plaque within the aortic arch and proximal great vessels. Calcified plaque within the bilateral carotid bifurcations. IMPRESSION: No significant stenosis, occlusion, or dissection identified within the carotid or vertebral arteries. ACT 112: Negative or not required by law. Electronically signed by: Dylan Padron M.D. 04/11/2023 2:08 PM Supervising Physician Co-Signing Physician Notes Patient seen and examined, chart reviewed, case discussed with Nicole Alexander PA-C and I agree with the assessment and plan as above except as otherwise noted Labs and images reviewed Miranda is seen at the bedside. She reports that she has history of hypertension, A-fib on Xarelto, hypothyroidism, anxiety/obesity and she comes in today for left jaw and neck complaint with some upper chest pain when she breathes and headache. She is compliant with her DOAC. D-dimer is negative. She has had worsened pain with inspiration, and notes a lot of swelling around the lymph nodes in her left neck. She has been around her grandson who recently had a fever and upper respiratory infection a few days ago. She has not yet had any fever, chills, congestion, cough. She does not feel short of breath or dyspneic, just notes that pain causes her neck to be uncomfortable. She has a mild headache slightly improved with Tylenol. BP is normally in 130s, has been elevated up to 180s. At bedside lungs are clear, skin is warm and dry, heart rate is regular. Patient does have some increased left anterior chain lymphadenopathy compared to the right with some tenderness, and mild overlying clavicular tenderness without crepitus. No overlying erythema/warmth.? Viral URI with recent exposure and reactive lymphadenopathy. If not improving and bio fire respiratory is negative, can follow-up with a soft tissue ultrasound. No signs of respiratory compromise at time of admission and uvula is midline. Blood pressure is improving post hydralazine, losartan baseline ordered and may continue hydralazine as noted. Target BP goal of less than 180. Agree with treatment and management as above PG Care Time/CCT Total # of Minutes Spent Total Time Spent with Patient: Total time spent is greater than 50% in coordination of care (as documented) at patient's floor/unit and/or counseling patient: Coding Level of Care Code 96061 INT INP/OBS CARE 140MIN Diagnoses Hypertensive urgency I16.0 Anxiety F41.9 Headache R51.9 Elevated hemoglobin A1c R73.09
--- NOTE | 2023-04-11 16:04 | Electrocardiogram Report ---
Test Reason : Blood Pressure : / mmHG Vent. Rate : 092 BPM Atrial Rate : 000 BPM P-R Int : 000 ms QRS Dur : 064 ms QT Int : 344 ms P-R-T Axes : 000 033 137 degrees QTc Int : 425 ms Atrial fibrillation Low voltage QRS Septal infarct (cited on or before 11-APR-2023) Abnormal ECG When compared with ECG of 22-JUN-2022 01:11, No significant change was found Confirmed by Luis Enrique Zepeda ([id number]) on 04/11/2023 4:03:54 PM Referred By: Confirmed By:Luis Enrique Zepeda
[2023-04-11] MEDS ORDERED: LOSARTAN POTASSIUM 25 MG TAB PO STA ×2 (16:25→16:51)
[2023-04-11] MEDS ORDERED: FUROSEMIDE 40 MG TAB PO SCH (17:00)
[2023-04-11] MEDS ORDERED: POTASSIUM CHLORIDE CRTAB 20 MEQ TABCR PO SCH (17:00)
[2023-04-11] MEDS ORDERED: ACETAMINOPHEN 500 MG TAB PO PRN ×2 (17:00→17:04)
[2023-04-11] MEDS ORDERED: hydrALAZINE HCL 20 MG/ML VIAL IV PRN (17:04)
[2023-04-11] MEDS ORDERED: ZOLPIDEM TARTRATE 5 MG TAB PO PRN (17:04)
[2023-04-11] MEDS ORDERED: ONDANSETRON INJ 2 MG/ML 2 ML VIAL IV PRN (17:04)
[2023-04-11] MEDS ORDERED: NITROGLYCERIN SL 0.4 MG/TAB TAB SL PRN (17:04)
[2023-04-11] MEDS ORDERED: MoRPHine SULFATE 2 MG/ML CARP IV PRN (17:04)
[2023-04-11 18:06] LABS: D Dimer 490 ug/L FEU (0-500)
[2023-04-11 18:51] LABS: Adenovirus PCR Not Detected (NotDetected); Bordetella parapertussis PCR Not Detected (NotDetected); Bordetella pertussis PCR Not Detected (NotDetected); Chlamydia pneumoniae PCR Not Detected (NotDetected); Coronavirus 229E PCR Not Detected (NotDetected); Coronavirus CoV-2 (COVID19)PCR Not Detected (NotDetected); Coronavirus HKU1 PCR Not Detected (NotDetected); Coronavirus NL63 PCR Not Detected (NotDetected); Coronavirus OC43PCR Not Detected (NotDetected); Human Metapneumovirus PCR Not Detected (NotDetected); Influenza A PCR Not Detected (NotDetected); Influenza B PCR Not Detected (NotDetected); Mycoplasma pneumoniae PCR Not Detected (NotDetected); Parainfluenza Virus 1 PCR Not Detected (NotDetected); Parainfluenza Virus 2 PCR Not Detected (NotDetected); Parainfluenza Virus 3 PCR Not Detected (NotDetected); Parainfluenza Virus 4 PCR Not Detected (NotDetected); Respiratory Syncytial VirusPCR Not Detected (NotDetected); Rhinovirus/Enterovirus PCR Not Detected (NotDetected)
[2023-04-11] MEDS ORDERED: RIVAROXABAN 20 MG TAB PO SCH (21:00)
[2023-04-11] MEDS: ALPRAZolam 0.5 MG TABLET PO SCH (23:15)
[2023-04-12] MEDS: ALPRAZolam 0.5 MG TABLET PO SCH ×2 (08:35→13:39)
[2023-04-12] MEDS ORDERED: POLYETHYLENE (MIRALAX) 17 GM PACK PO SCH (09:00)
[2023-04-12] MEDS ORDERED: LEVOTHYROXINE SODIUM 150 MCG TABLET PO SCH (09:00)
[2023-04-12] MEDS ORDERED: ATORVASTATIN 10 MG TAB PO SCH (09:00)
--- NOTE | 2023-04-12 10:39 | Hospitalist Progress Note ---
Date of Service April 12, 2023 Assessment & Plan (1) Hypertensive urgency: Plan: Acute unstable - S/P hydralazine in the ER 5mg x 1 BP improved from 193 to 184 - Then Ordered Losartan 5mg po x 1 dose - Hydralazine 2.5mg one q 6hours as needed - trend troponin - continue home Xarelto - await echo - check D Dimer (inspiratory pain) - will get Biofire (may have upper respiratory illness starting) - Repeat AM labs - Tylenol q 8H as needed for headache (2) Anxiety: Plan: Chronic Xanax as needed (3) Headache: Plan: Acute Tylenol as needed (4) Elevated hemoglobin A1c: Plan: Last HgbA1C was 7.3 in January. Patient tells me that her and her PCP opted not to start any treatment for diabetes due to her age, and that she did not want to start any medications for this. Admission and Anticipated Discharge Date Admission Date: April 11, 2023 Results & Data Results & Data Vital Signs (Past 12 Hours) Vital Signs Temp Pulse Pulse Resp BP Pulse Ox O2 Del Method 04/12/23 09:42 Room Air 04/12/23 08:00 99.1 F 73 19 120/66 96 Room Air 04/12/23 07:00 66 04/12/23 03:00 97.7 F 63 18 101/61 96 Nasal Cannula O2 Flow Rate 04/12/23 09:42 04/12/23 08:00 2 04/12/23 07:00 04/12/23 03:00 2 PG Care Time/CCT Total # of Minutes Spent Total Time Spent with Patient: Total time spent is greater than 50% in coordination of care (as documented) at patient's floor/unit and/or counseling patient: Coding Diagnoses Hypertensive urgency I16.0 Anxiety F41.9 Headache R51.9 Elevated hemoglobin A1c R73.09
[2023-04-12] MEDS ORDERED: FUROSEMIDE 20 MG TAB PO SCH (17:00)
--- NOTE | 2023-04-12 17:48 | XCELERA ---
[id number]
--- NOTE | 2023-04-12 18:13 | Discharge Summary ---
Date of Service April 12, 2023 Admission HPI Per Admitting Provider Miranda Gates is a 87 year old female with a past medical history of HTN, A fib on Xarelto, hypothyroidism, anxiety and obesity who presented to the ER today with complaints of headache and left sided jaw, neck and upper chest pain since 6 AM today. Patient denies any current tobacco abuse, she quit in the . Patient is not sure if the headache awoke her or if she just awoke at 6 AM. None the less when she woke up she realized she had left sided head, neck and jaw pain. She denies any diaphoresis, nausea, vomiting, heart burn or other GI sxs. She denies any chest pains. She admits that the neck pain is reproducible by palpating on her left lymph node area. She denies any fevers, chills, congestion, cough. She admits that the pain was also increased with taking a deep inspiration. She states she has a hx of HTN and takes Lasix for this. Alternating doses of 20mg and 40mg. She states normally her BP at home consistently runs in the 130 range systolically. Patient states she took a xanax and also a Tylenol #3 and these helped slightly with her symptoms. Patient was evaluated in the ER and found to have hypertensive urgency. Systolic BP upon admission was 193. Patient was given Hydralazine 5mg IV and the systolic BP has improved to 184. A Lidoderm patch was applied to the left neck, per patient this has not helped her sxs. Patient follows with Dr Alva and last echo was in June 2022. Patient had CTA head, neck and chest with no acute changes. CBC revealed a stable and normal H&H, normal wbc count, troponin was slightly elevated at 24.9 (upper 20s and low 30s) Patient became anxious after my exam and told Dr Mcdowell that she was now having severe inspiratory pain and also that her grandson had a illness and fever recently. She also was asking for something for pain and anxiety. (Patient also states she has a hx of an elevated HgbA1C of 7.3 recently and patient and her PCP opted to not treat for diabetes, due to her age.) Principal Diagnosis hypertensive urgency, resolved, no new medications were started this stay Discharge Exam neurologic exam is intact cardiac is regular lungs are clear extremity with little edema Discharge Data Allergies Allergy/AdvReac Type Severity Reaction Status Date / Time No Known Allergies Allergy Verified 02/27/23 14:08 Consultations 04/11/23 15:29 ED Decision to Admit Stat Ordered Studies Chest X-Ray 04/11/23 11:32 XR chest 1V not portable CLINICAL HISTORY: Chest pain, nonspecific COMPARISON STUDY: Chest radiograph June 21, 2022. FINDINGS: Old left-sided rib fractures are present. There is no pneumothorax or pleural effusion. Cardiomegaly is unchanged. There is no evidence for pulmonary edema. There has been no significant change in appearance of the chest. Linear left basilar densities are similar to prior exam and favor atelectasis or scarring. IMPRESSION: No acute cardiopulmonary findings. No change in appearance of the chest. Cardiomegaly. Electronically signed by: Austin Ventura M.D. 04/11/2023 12:[address] 04/11/23 12:27 CT head/brain wo con CLINICAL HISTORY: L sided headache Technique: Contiguous axial CT images of the head were acquired from the base of the skull to the vertex without intravenous contrast administration. Images were viewed in brain, subdural and bone windows. Automated dose lowering techniques and/or adjustment according to patient size were utilized for this exam. Comparison: Comparison is made to CT head 06/20/2022 Findings: The ventricles, basal cisterns, and cerebral sulci are normal. There is no acute intracranial hemorrhage or evidence of acute territorial infarction. Neither ma ss effect, shift of the midline structures, nor abnormal extra-axial fluid collections are shown. Imaged portions of the paranasal sinuses and mastoid air cells are clear. The orbits appear normal. There are no acute fractures of the calvaria or scalp swelling. Impression: No acute intracranial hemorrhage, no evidence of acute territorial infarction or other acute intracranial disease process. Electronically signed by: Franck Hermosillo M.D. 04/11/2023 1:02 PM Chest CTA 04/11/23 13:12 CT ANGIOGRAPHY OF THE CHEST, PULMONARY EMBOLUS PROTOCOL CLINICAL HISTORY: Pleuritic chest pain. Evaluate for pulmonary embolus. COMPARISON STUDY: Chest radiographs June 21, 2022 and April 11, 2023. TECHNIQUE: Following IV administration of 105 mL of Optiray, helical axial images of the chest were obtained utilizing the pulmonary embolus protocol. Maximal intensity projections and sagittal and coronal reformats were viewed on an independent 3D workstation. IV contrast was administered without complication. Automated exposure control was utilized for the study. A dose lowering technique was utilized adhering to the principles of ALARA. CT DOSE: 1181.39 mGy.cm FINDINGS: No pulmonary emboli are identified. There is no thoracic aortic dissection. There is mild dilatation of the ascending aorta, measuring 4.2 cm. Moderate cardiomegaly and coronary artery calcification is present. There is no pneumothorax or pleural effusion. No consolidation to suggest pneumonia. Linear and groundglass opacities favor atelectasis. No acute fractures within the bony thorax. Nodularity of the liver surface is unchanged from prior abdominal CT. This favors cirrhosis. IMPRESSION: 1. No pulmonary emboli identified. 2. No acute intrathoracic findings. 3. Moderate cardiomegaly. 4. Cirrhosis. Electronically signed by: Austin Ventura M.D. 04/11/2023 2:44 PM Head CTA 04/11/23 13:12 CT angio head w con CLINICAL HISTORY: L sided head/neck pain, pleuritic CP TECHNIQUE: CT angiography of the head was performed following intravenous administration of iodinated contrast. Coronal and sagittal MIPS were obtained from the axial data set and were submitted for review. Automated dose lowering techniques and/or adjustment according to patient size were utilized for this examination. All measurements were calculated based on NASCET criteria. Comparison: Comparison is made to CT head 04/01/2023 FINDINGS: CTA Head: The anterior and posterior cerebral circulations are patent. origin of the left posterior cerebral artery is seen. IMPRESSION: No occlusion, hemodynamically significant stenosis, aneurysm, dissection, or arteriovenous malformation in the major intracranial arteries. Assessment of stenosis of the internal carotid arteries is based on NASCET criteria. electronically signed by: Franck Hermosillo M.D. 04/11/2023 2:09 PM Neck CTA 04/11/23 13:12 NECK CTA HISTORY: L sided head/neck pain, pleuritic CP TECHNIQUE: Multiaxial CT images of the neck were performed following the intravenous administration of contrast to evaluate the major cervical vessels. Maximum intensity projection images were also obtained. All measurements were calculated based on NASCET criteria. A dose lowering technique was utilized adhering to the principles of ALARA. COMPARISON STUDY: None. FINDINGS: The aortic arch and proximal great vessels are widely patent. There is no significant stenosis, occlusion, or dissection identified within the bilateral common carotid, internal carotid, or vertebral arteries. There is a 4 mm nodule within the left upper lobe on image 27. No acute fractures within the cervical spine. Mild calcified plaque within the aortic arch and proximal great vessels. Calcified plaque within the bilateral carotid bifurcations. IMPRESSION: No significant stenosis, occlusion, or dissection identified within the carotid or vertebral arteries. Electronically signed by: Dylan Padron M.D. 04/11/2023 2:08 PM Hospital Course (1) Hypertensive urgency: Acute now stable - S/P hydralazine in the ER 5mg x 1 BP improved from 193 to 184 - Then Ordered Losartan 5mg po x 1 dose - Hydralazine 2.5mg one q 6hours as needed -no up trend troponin - continue home Xarelto - Echo pending at time of discharge, pt wants to go home and will follow up with phone call of results - - negative respiratory biofire (2) Anxiety: Chronic Xanax as needed (3) Headache: Acute Tylenol as needed (4) Elevated hemoglobin A1c: Last HgbA1C was 7.3 in January. Patient tells me that her and her PCP opted not to start any treatment for diabetes due to her age, and that she did not want to start any medications for this. Total Time Total Time Spent Total Time Spent (In Minutes): greater than 30 minutes were required to create this discharge summary Discharge Plan Discharge Items Patient Disposition: Home - Self-Care Reason For Visit: HYPERTENSIVE URGENCY Discharge Diagnosis: hypertensive urgerncy Activity: Resume your previous activity Non-emergency contact: Primary Care Provider Call non-emergency contact if: your symptoms worsen Follow-up/Referrals: Shauna Sung MD [Primary Care Provider] - Diet: Low Sodium (2gm) Addtl Attending Provider Instructions: please have a low salt diet follow up with your family doctor in one week Pending Studies at Discharge: No Stand-Alone Forms: My Rapid Pathogen Screening, Smoking Cessation Medications and DC Order Prescriptions: Continued potassium chloride 20 mEq tablet extended release 20 meq PO .QOD Qty: 45 3RF polyethylene glycol 3350 17 gram/dose powder 17 g PO QAM Centrum Silver Women 8 mg iron-400 mcg-300 mcg tablet 1 tab PO QAM omega-3 fatty acids [Fish Oil Concentrate] 1,000 mg capsule 1,000 mg PO BID atorvastatin 10 mg tablet 10 mg PO QAM Qty: 90 3RF levothyroxine [Synthroid] 150 mcg tablet 150 mcg PO QAM Qty: 90 3RF Xarelto 20 mg tablet 20 mg PO HS Qty: 90 3RF Hold Instructions: nose bleeds alprazolam 0.5 mg tablet 0.5 mg PO TID Qty: 90 5RF acetaminophen-codeine 300-30 mg tablet 0.5 - 1 tab PO BID PRN (Reason: pain) Qty: 60 0RF cholecalciferol (vitamin D3) [Vitamin D3] 50 mcg (2,000 unit) Capsule 50 mcg PO QAM clobetasol 0.05 % cream 1 applic topical BID PRN (Reason: Rash) acetaminophen 500 mg Tablet 500 mg PO Q6H PRN (Reason: Pain) furosemide [Lasix] 40 mg Tablet 40 mg PO Q OTHER DAY furosemide 20 mg tablet 20 mg PO Q OTHER DAY Rx Instructions: From tomorrow take 20 mg and 40 mg alternate day beginning with 20 mg tomorrow Discharge Orders: Discharge Order (Routine); Ordered 04/12/23 Ordered By: Dillon Patterson Admission Data Admit Date/Time: 04/11/23 16:40 Attending Provider: Dillon Patterson Admit Provider: Chad Vargas Primary Care Provider: Shauna Sung V. Other Providers: Chad Vargas Other Interventions: Discharge Summary Assessment (RN) Last Done: 04/12/23 17:50 Coding Level of Care Code 32373 INP/OBS DISCH >30 MIN Diagnoses Hypertensive urgency I16.0 Anxiety F41.9 Headache R51.9 Elevated hemoglobin A1c R73.09
--- NOTE | 2023-04-13 05:47 | Electrocardiogram Report ---
Test Reason : Blood Pressure : / mmHG Vent. Rate : 076 BPM Atrial Rate : 000 BPM P-R Int : 000 ms QRS Dur : 076 ms QT Int : 416 ms P-R-T Axes : 000 029 060 degrees QTc Int : 468 ms Atrial fibrillation Low voltage QRS Nonspecific T wave abnormality Abnormal ECG When compared with ECG of 11-APR-2023 11:28, No significant change Confirmed by Lorenzo Rodriguez ([id number]) on 04/13/2023 5:46:55 AM Referred By: REFERRED SELF Confirmed By:Lorenzo Rodriguez
== END 2023-04-12 18:11 | disposition home or self-care (01) ==
LOC: EDINP 11:18 → ED 11:18 → SUATTDRO 16:40 → 2N 16:54